=== PATIENT | male | born 1965 | race Caucasian/White ===

== ENCOUNTER 2017-09-14 23:56 | Observation (INO) | payer OTHER ==
[2017-09-15] MEDS ORDERED: MORPHINE 4 MG/ML SYR ONE ×2 (00:48→03:16)
[2017-09-15] MEDS ORDERED: KETOROLAC 30 MG/ML INJ ONE (00:48)
[2017-09-15] MEDS ORDERED: NA CHLORIDE 0.9% 1,000 ML ONE ×2 (00:48→07:19)
[2017-09-15 00:51] LABS: Absolute Lymphocytes (CBC) 3.1 K/uL (0.7-4.9); Absolute Monocytes 0.7 K/uL (0.1-1.3); Absolute Neutrophil 3.7 K/uL (1.8-8.0); Basophils % 0.6 % (0-1.3); Hematocrit 44.5 % (39.6-49.0); Lymphocytes % 39.9 % (15.3-44.8); MCH 28.1 pg (27.0-35.0); MCV 84.9 fL (80-100); MPV 10.7 fL (7.6-11.3); Monocytes % 8.6 % (3.3-12.3); RBC Red Blood Cell Count 5.24 M/uL (4.33-5.43)
[2017-09-15] MEDS ORDERED: ONDANSETRON 4 MG/2 ML VIAL ONE ×2 (00:51→07:19)
[2017-09-15 01:04] LABS: Potassium 3.7 mEq/L (3.6-5.0)
[2017-09-15 01:11] LABS: Urine Bacteria <20 /HPF (NONE SEEN); Urine Culture Reflex Order NOT NEEDED; Urine RBC <5 /HPF (NONE SEEN)
[2017-09-15 01:11] LABS: Albumin 4.3 g/dL (3.2-5.5); Bilirubin Direct 0.1 mg/dL (0-0.2); Bilirubin Total 0.8 mg/dL (0.3-1.2); Protein, Total 6.6 g/dL (6.0-8.3)
[2017-09-15 01:46] LABS: Urine Blood NEGATIVE (NEG); Urine Glucose NEGATIVE (NEG); Urine Protein NEGATIVE (NEG); Urine Specific Gravity <1.005 (1.005-1.030); Urine pH 5.5 (5.0-7.0)
[2017-09-15] MEDS ORDERED: CEFTRIAXONE 1000 MG/VIAL ONE (02:02)
--- NOTE | 2017-09-15 02:41 | EDPHYS ---
Physician Documentation [facility] Name: Wood Curry Age: 52 yrs Sex: Male : 1965 Arrival Date: 09/15/2017 Time: 00:00 Bed 14 Private MD: Kyle Gregg C ED Physician Mc Kim HPI: 09/15 01:34 This 52 yrs old Male presents to ER via Ambulatory with complaints of Flank alexis Pain, Whole rt side pain. 01:34 This 52 yrs old Male presents to ER via Ambulatory with complaints of Flank alexis Pain, Whole rt side pain. 01:34 The patient complains of pain in the right low back. The pain does not radiate. Onset: alexis The symptoms/episode began/occurred 3 day(s) ago. Modifying factors: The symptoms are alleviated by remaining still, the symptoms are aggravated by movement, palpation/percussion. Associated signs and symptoms: The patient has no apparent associated signs or symptoms. Severity of pain: At its worst the pain was moderate in the emergency department the pain is unchanged. The patient has not experienced similar symptoms in the past. Historical: - Allergies: 00:27 No Known Allergies; bb - Home Meds: 00:27 Multaq oral oral [Active]; Aspirin Oral [Active]; Gemfibrozil Oral [Active]; bb Simvastatin Oral [Active]; Nexium Oral [Active]; amlodipine oral [Active]; - PMHx: 00:27 CAD; Diabetes - NIDDM; GERD; Hypertension; Hyperlipidemia; bb - PSHx: 00:27 Heart stents; Cholecystectomy; plate in neck; Knee surgery; bb - Immunization history:: Adult Immunizations up to date. - Social history:: Smoking status: Patient uses tobacco products, smokes one-half pack cigarettes per day, Patient uses alcohol, on a daily basis. Patient/guardian denies using street drugs. - Ebola Screening: : No symptoms or risks identified at this time. - Family history:: not pertinent. ROS: 01:34 Constitutional: Negative for fever, chills, and weight loss, Eyes: Negative for injury, alexis pain, redness, and discharge, ENT: Negative for injury, pain, and discharge, Neck: Negative for injury, pain, and swelling, Cardiovascular: Negative for chest pain, palpitations, and edema, Respiratory: Negative for shortness of breath, cough, wheezing, and pleuritic chest pain, Back: Negative for injury and pain, : Negative for injury, bleeding, discharge, and swelling, MS/Extremity: Negative for injury and deformity, Skin: Negative for injury, rash, and discoloration, Neuro: Negative for headache, weakness, numbness, tingling, and seizure, Psych: Negative for depression, anxiety, suicide ideation, homicidal ideation, and hallucinations, Allergy/Immunology: Negative for hives, rash, and allergies, Endocrine: Negative for neck swelling, polydipsia, polyuria, polyphagia, and marked weight changes, Hematologic/Lymphatic: Negative for swollen nodes, abnormal bleeding, and unusual bruising. 01:34 Abdomen/GI: Positive for abdominal pain, of the left lower quadrant. Exam: 01:34 Constitutional: This is a well developed, well nourished patient who is awake, alert, alexis and in no acute distress. Head/Face: Normocephalic, atraumatic. Eyes: Pupils equal round and reactive to light, extra-ocular motions intact. Lids and lashes normal. Conjunctiva and sclera are non-icteric and not injected. Cornea within normal limits. Periorbital areas with no swelling, redness, or edema. ENT: Nares patent. No nasal discharge, no septal abnormalities noted. Tympanic membranes are normal and external auditory canals are clear. Oropharynx with no redness, swelling, or masses, exudates, or evidence of obstruction, uvula midline. Mucous membranes moist. Neck: Trachea midline, no thyromegaly or masses palpated, and no cervical lymphadenopathy. Supple, full range of motion without nuchal rigidity, or vertebral point tenderness. No Meningismus. Chest/axilla: Normal chest wall appearance and motion. Nontender with no deformity. No lesions are appreciated. Respiratory: Lungs have equal breath sounds bilaterally, clear to auscultation and percussion. No rales, rhonchi or wheezes noted. No increased work of breathing, no retractions or nasal flaring. Back: No spinal tenderness. No costovertebral tenderness. Full range of motion. Male : Normal genitalia with no discharge or lesions. Skin: Warm, dry with normal turgor. Normal color with no rashes, no lesions, and no evidence of cellulitis. MS/ Extremity: Pulses equal, no cyanosis. Neurovascular intact. Full, normal range of motion. Neuro: Awake and alert, GCS 15, oriented to person, place, time, and situation. Cranial nerves II-XII grossly intact. Motor strength 5/5 in all extremities. Sensory grossly intact. Cerebellar exam normal. Normal gait. Psych: Awake, alert, with orientation to person, place and time. Behavior, mood, and affect are within normal limits. 01:34 Chest/axilla: Inspection: normal, Palpation: is normal, Axilla: are normal, Lymph nodes: lymphadenopathy is not appreciated. 01:34 Cardiovascular: Rate: normal. 01:34 Abdomen/GI: Inspection: distension, Bowel sounds: normal, Palpation: moderate abdominal tenderness, in the anterior aspect of right lateral abdomen, posterior aspect of right lateral abdomen, left upper quadrant and left lower quadrant. Vital Signs: 00:27 BP 143 / 70; Pulse 8; Resp 18 S; Temp 98.4(O); Pulse Ox 97% on R/A; Weight 124.74 kg bb (R); Height 6 ft. 4 in. (193.04 cm) (R); Pain 8/10; 01:16 BP 106 / 69; Pulse 79; Resp 20; Pulse Ox 97% on R/A; aa1 02:00 BP 118 / 78; Pulse 74; Resp 18; Pulse Ox 96% on R/A; aa1 02:50 BP 114 / 67; Pulse 70; Resp 18; Pulse Ox 94% on R/A; aa1 03:32 BP 116 / 71; Pulse 79; Resp 16; Temp 98.8; Pulse Ox 96% on R/A; Pain 5/10; aa1 07:00 BP 119 / 81; Pulse 64; Resp 19; Pulse Ox 96% on R/A; Pain 9/10; rb1 00:27 Body Mass Index 33.47 (124.74 kg, 193.04 cm) bb MDM: 00:41 Patient medically screened. [facility] 01:36 Data reviewed: vital signs, nurses notes, lab test result(s), radiologic studies, CT alexis scan. 09/15 00:26 Order name: Amylase, Serum; Complete Time: 01:32 mg2 09/15 00:27 Order name: Basic Metabolic Panel; Complete Time: 01:32 mg2 09/15 00:27 Order name: CBC with Diff; Complete Time: 01:32 mg2 09/15 00:27 Order name: Creatinine for Radiology; Complete Time: 01:32 mg2 09/15 00:27 Order name: Hepatic Function; Complete Time: :32 mg2 09/15 00:27 Order name: Lipase; Complete Time: :32 mg2 09/15 00:27 Order name: Urine Microscopic Only; Complete Time: 01:32 mg2 09/15 01:13 Order name: Urine Dipstick--Ancillary (enter results) cc 09/15 01:13 Order name: Urine Dipstick-Ancillary; Complete Time: 02:35 EDMS 09/15 01:33 Order name: CT Abd/Pelvis - W/Contrast: iv only alexis 09/15 00:27 Order name: IV Saline Lock; Complete Time: 00:40 mg2 09/15 00:27 Order name: Labs collected and sent; Complete Time: 00:40 mg2 09/15 00:27 Order name: Urine Dipstick-Ancillary (obtain specimen); Complete Time: 00:35 mg2 09/15 02:45 Order name: CONS Physician Consult EDMS Administered Medications: 01:00 Drug: NS 0.9% 1000 ml Route: IV; Rate: 1 bolus; Site: right antecubital; aa1 02:47 Follow up: IV Status: Completed infusion aa1 01:00 Drug: Zofran 4 mg Route: IVP; Site: right antecubital; aa1 02:00 Follow up: Response: No adverse reaction aa1 01:02 Drug: TORadol 30 mg Route: IVP; Site: right antecubital; aa1 02:00 Follow up: Response: No adverse reaction; Pain is decreased aa1 01:04 Drug: morphine 4 mg Route: IVP; Site: right antecubital; aa1 02:00 Follow up: Response: No adverse reaction; Pain is decreased aa1 02:06 Drug: Rocephin - (cefTRIAXone) 1 grams Route: IVPB; Infused Over: 30 mins; Site: right aa1 antecubital; 02:36 Follow up: IV Status: Completed infusion aa1 03:00 Drug: Flagyl 500 mg Volume: 100 ml; Route: IVPB; Rate: 200 ml/hr; Infused Over: 30 aa1 mins; Site: right antecubital; 03:40 Follow up: IV Status: Infusion continued upon admission aa1 Disposition: 09/15/17 02:40 Hospitalization ordered by Kyle Gregg for Inpatient Admission. Preliminary diagnosis are Abdominal tenderness, Left sided colitis - epiploic appendagitis. - Bed requested for Telemetry/MedSurg (Inpatient). - Status is Inpatient Admission. rb1 - Condition is Stable. - Problem is new. - Symptoms have improved. UTI on Admission? No Signatures: Dispatcher [employer] EDVT Keke Johnston RN RN kl Janeth Graham RN RN aa1 Mc Kim MD MD cha Ballard, Brenda, RN RN bb Heather Gupta, RN RN rb1 Maximo Laughlin RN RN mg2 Corrections: (The following items were deleted from the chart) 01:58 00:43 Stone Protocol+CT.RAD.BRZ ordered. [facility] 02:51 02:40 Hospitalization Ordered by A Marysol FUENTES for Inpatient Admission. Preliminary kl diagnosis is Abdominal tenderness; Left sided colitis - epiploic appendagitis. Bed requested for Telemetry/MedSurg (Inpatient). Status is Inpatient Admission. Condition is Stable. Problem is new. Symptoms have improved. UTI on Admission? No. alexis 06:12 02:51 09/15/2017 02:40 Hospitalization Ordered by A Marysol FUENTES for Inpatient Admission. kl Preliminary diagnosis is Abdominal tenderness; Left sided colitis - epiploic appendagitis. Bed requested for [facility] ER HOLD. Status is Inpatient Admission. Condition is Stable. Problem is new. Symptoms have improved. UTI on Admission? No. renate 07:57 06:12 09/15/2017 02:40 Hospitalization Ordered by A Marysol FUENTES for Inpatient Admission. rb1 Preliminary diagnosis is Abdominal tenderness; Left sided colitis - epiploic appendagitis. Bed requested for Telemetry/MedSurg (Inpatient). Status is Inpatient Admission. Condition is Stable. Problem is new. Symptoms have improved. UTI on Admission? No. renate
--- NOTE | 2017-09-15 02:41 | ER ---
Nurse's Notes [facility] Name: Wood Curry Age: 52 yrs Sex: Male : 1965 Arrival Date: 09/15/2017 Time: 00:00 Bed 14 Private MD: Kyle Gregg C Diagnosis: Abdominal tenderness;Left sided colitis-epiploic appendagitis Presentation: 09/15 00:22 Presenting complaint: Patient states: he is having left lower quad pain x 2 days but bb pain is worsening denies N/V/D, denies dysuria, last BM was 2 days ago. Transition of care: patient was not received from another setting of care. Onset of symptoms was September 12, 2017. Risk Assessment: Do you want to hurt yourself or someone else? Patient reports no desire to harm self or others. Initial Sepsis Screen: Does the patient meet any 2 criteria? No. Patient's initial sepsis screen is negative. Does the patient have a suspected source of infection? No. Patient's initial sepsis screen is negative. Care prior to arrival: None. 00:22 Method Of Arrival: Ambulatory bb 00:22 Acuity: MARK 3 bb Historical: - Allergies: 00:27 No Known Allergies; bb - Home Meds: 00:27 Multaq oral oral [Active]; Aspirin Oral [Active]; Gemfibrozil Oral [Active]; bb Simvastatin Oral [Active]; Nexium Oral [Active]; amlodipine oral [Active]; - PMHx: 00:27 CAD; Diabetes - NIDDM; GERD; Hypertension; Hyperlipidemia; bb - PSHx: 00:27 Heart stents; Cholecystectomy; plate in neck; Knee surgery; bb - Immunization history:: Adult Immunizations up to date. - Social history:: Smoking status: Patient uses tobacco products, smokes one-half pack cigarettes per day, Patient uses alcohol, on a daily basis. Patient/guardian denies using street drugs. - Ebola Screening: : No symptoms or risks identified at this time. - Family history:: not pertinent. Screenin:30 Abuse screen: Denies threats or abuse. Denies injuries from another. Nutritional aa1 screening: No deficits noted. Tuberculosis screening: No symptoms or risk factors identified. Fall Risk None identified. Assessment: 00:30 General: Appears in no apparent distress. comfortable, Behavior is calm, cooperative, aa1 appropriate for age, Smells of alcohol. Pain: Complains of pain in left lower quadrant Quality of pain is described as sharp, Is continuous. Neuro: Level of Consciousness is awake, alert, obeys commands, Oriented to person, place, time, situation, Moves all extremities. Full function Gait is steady, Speech is normal. Cardiovascular: Denies chest pain, palpitations, shortness of breath, Heart tones S1 S2 present Rhythm is regular. Respiratory: Airway is patent Respiratory effort is even, unlabored, Respiratory pattern is regular, symmetrical. GI: Abdomen is non-distended, Bowel sounds present X 4 quads. Abd is soft X 4 quads Abdomen is tender to palpation in left lower quadrant. : No signs and/or symptoms were reported regarding the genitourinary system. EENT: No signs and/or symptoms were reported regarding the EENT system. Derm: Skin is intact, is healthy with good turgor, Skin is pink, warm \T\ dry. Musculoskeletal: Circulation, motion, and sensation intact. Capillary refill < 3 seconds. 01:09 Reassessment: Patient appears in no apparent distress at this time. Patient and/or aa1 family updated on plan of care and expected duration. Pain level reassessed. Patient is alert, oriented x 3, equal unlabored respirations, skin warm/dry/pink. Pt remains to await initial assessment by ERP. 02:07 Reassessment: Patient appears in no apparent distress at this time. Patient and/or aa1 family updated on plan of care and expected duration. Pain level reassessed. Patient is alert, oriented x 3, equal unlabored respirations, skin warm/dry/pink. Pt back from CT. 03:10 Reassessment: Patient appears in no apparent distress at this time. Patient and/or aa1 family updated on plan of care and expected duration. Pain level reassessed. Patient is alert, oriented x 3, equal unlabored respirations, skin warm/dry/pink. Pt to be admitted. Awaiting bed assignment. 07:00 General: Appears uncomfortable, Behavior is calm, cooperative. Pain: Complains of pain rb1 in left lower quadrant Pain currently is 9 out of 10 on a pain scale. Neuro: Level of Consciousness is awake, alert, obeys commands, Oriented to person, place, time, situation. Cardiovascular: Capillary refill < 3 seconds is brisk in bilateral fingers. Respiratory: Airway is patent Respiratory effort is even, unlabored, Respiratory pattern is regular, symmetrical. Derm: Skin is pink, warm \T\ dry. 07:35 Reassessment: Report called to JAKY Yee. Information from the SBAR was given. All rb1 questions asked and answered. Vital Signs: 00:27 BP 143 / 70; Pulse 8; Resp 18 S; Temp 98.4(O); Pulse Ox 97% on R/A; Weight 124.74 kg bb (R); Height 6 ft. 4 in. (193.04 cm) (R); Pain 8/10; 01:16 BP 106 / 69; Pulse 79; Resp 20; Pulse Ox 97% on R/A; aa1 02:00 BP 118 / 78; Pulse 74; Resp 18; Pulse Ox 96% on R/A; aa1 02:50 BP 114 / 67; Pulse 70; Resp 18; Pulse Ox 94% on R/A; aa1 03:32 BP 116 / 71; Pulse 79; Resp 16; Temp 98.8; Pulse Ox 96% on R/A; Pain 5/10; aa1 07:00 BP 119 / 81; Pulse 64; Resp 19; Pulse Ox 96% on R/A; Pain 9/10; rb1 00:27 Body Mass Index 33.47 (124.74 kg, 193.04 cm) bb ED Course: 00:00 Patient arrived in ED. es 00:01 Kyle Gregg MD is Private Physician. es 00:21 Maximo Laughlin RN is Primary Nurse. mg2 00:23 Triage completed. bb 00:27 Arm band placed on Patient placed in an exam room, on a stretcher, on pulse oximetry. bb Family accompanied patient. 00:30 Patient has correct armband on for positive identification. Bed in low position. Call aa1 light in reach. 00:31 Urine collected: clean catch specimen, clear. aa1 00:40 Initial lab(s) drawn, by ED staff, sent to lab. Inserted saline lock: 20 gauge in right aa1 antecubital area, using aseptic technique. Blood collected. 00:41 Mc Kim MD is Attending Physician. alexis 01:[address] via wheelchair. kw1 01:56 CT completed. Patient tolerated procedure well. Patient moved back from CT. kw1 01:57 CT Abd/Pelvis - W/Contrast: iv only In Process Unspecified. EDMS 02:37 Kyle Gregg MD is Hospitalizing Provider. alexis 03:10 No provider procedures requiring assistance completed. Patient admitted, IV remains in aa1 place. No redness/swelling at site. 07:55 No provider procedures requiring assistance completed. Patient admitted, IV remains in rb1 place. Administered Medications: 01:00 Drug: NS 0.9% 1000 ml Route: IV; Rate: 1 bolus; Site: right antecubital; aa1 02:47 Follow up: IV Status: Completed infusion aa1 01:00 Drug: Zofran 4 mg Route: IVP; Site: right antecubital; aa1 02:00 Follow up: Response: No adverse reaction aa1 01:02 Drug: TORadol 30 mg Route: IVP; Site: right antecubital; aa1 02:00 Follow up: Response: No adverse reaction; Pain is decreased aa1 01:04 Drug: morphine 4 mg Route: IVP; Site: right antecubital; aa1 02:00 Follow up: Response: No adverse reaction; Pain is decreased aa1 02:06 Drug: Rocephin - (cefTRIAXone) 1 grams Route: IVPB; Infused Over: 30 mins; Site: right aa1 antecubital; 02:36 Follow up: IV Status: Completed infusion aa1 03:00 Drug: Flagyl 500 mg Volume: 100 ml; Route: IVPB; Rate: 200 ml/hr; Infused Over: 30 aa1 mins; Site: right antecubital; 03:40 Follow up: IV Status: Infusion continued upon admission aa1 Outcome: 02:40 Decision to Hospitalize by Provider. alexis 03:39 Admitted to ER Hold. Please see [facility] for further documentation. aa1 03:39 Condition: good 03:39 Instructed on the need for admit, Demonstrated understanding of instructions. 07:55 Admitted to Tele accompanied by tech, via wheelchair, room 420, with chart, Report rb1 called to JAKY Yee 07:57 Patient left the ED. rb1 Signatures: Dispatcher [employer] EDMS Janeth Graham RN RN aa1 Mc Kim MD MD cha Salyer, Edna es Ballard, Brenda, RN RN Heather Ferrera RN RN rb1 Keke Parker1 Gardose, Maximo, RN RN mg2
[2017-09-15] MEDS ORDERED: MORPHINE 4 MG/ML SYR IV PRN (02:48)
[2017-09-15] MEDS ORDERED: ACETAMINOPHEN 500 MG TAB PO PRN (02:48)
[2017-09-15] MEDS ORDERED: ONDANSETRON 4 MG/2 ML VIAL IV PRN ×2 (02:48→08:15)
[2017-09-15] MEDS ORDERED: SODIUM CHLORIDE 0.9% 10ML INJ IV PRN (02:52)
[2017-09-15] MEDS ORDERED: METRONIDAZOLE 500mg IVPB 500 MG/100 ML BAG IV ONE (03:16)
[2017-09-15 04:36] VITALS: BMI 33.5
[2017-09-15] MEDS: NA CHLORIDE 0.9% 1,000 ML IV SCH ×3 (06:00→22:00)
[2017-09-15] MEDS ORDERED: Morphine 2 MG/2 ML SYR ONE (07:25)
[2017-09-15 08:08] VITALS: O2SAT 96
[2017-09-15] MEDS ORDERED: AMLODIPINE 5 MG TAB PO SCH (09:00)
[2017-09-15] MEDS ORDERED: CEFTRIAXONE 1 GM/NS 50 ML 1 GM/50 ML BAG IV SCH (09:00)
[2017-09-15] MEDS: DRONEDARONE 400 MG TAB PO SCH ×2 (09:00→20:38)
[2017-09-15] MEDS: ASPIRIN EC 81 MG TAB PO SCH (09:00)
[2017-09-15] MEDS: AMLODIPINE 5 MG TAB PO SCH (09:00)
[2017-09-15] MEDS: FENTANYL CITR 100 MCG/2 ML IV PRN ×4 (09:04→20:37)
[2017-09-15] MEDS: PANTOPRAZOLE 40 MG INJ IVP SCH (09:06)
[2017-09-15] MEDS: METRONIDAZOLE 500mg IVPB 500 MG/100 ML BAG IV SCH ×3 (09:07→18:12)
--- NOTE | 2017-09-15 09:55 | RAD REPORT ---
EXAM DESCRIPTION: CT - Abdomen Pelvis W Contrast - 09/15/2017 3:26 am CLINICAL HISTORY: Left lower quadrant pain, nausea, vomiting and diarrhea. A preliminary written report was provided at the time of the study, and the report was reviewed prio r to final dictation. COMPARISON: CT study August 2014 TECHNIQUE: Biphasic, helical CT imaging of the abdomen and pelvis was performed following 100 ml non -ionic IV contrast. Oral contrast was given. All CT scans are performed using dose optimization technique as appropriate and may include automated exposure control or mA/KV adjustment according to patient size. FINDINGS: No suspicious findings in the lung bases. Fatty infiltration of the liver is present. No new or suspicious liver finding. Spleen and pancreas a lso without suspicious finding. Cholecystectomy clips are present with no biliary tree dilatation. Symmetric renal function is seen with no hydronephrosis or suspicious renal mass. No pyelonephritis o r acute renal process. Left renal cysts are present and benign in appearance. Urinary bladder, prosta te gland and seminal vesicles show no suspicious findings. No gastric dilatation or gastric wall thickening. No acute small bowel finding. No evidence of append icitis. From the cecum through the mid descending colon no acute findings seen. At the descending sig moid junction there is stranding in the adjacent fat. No gross wall thickening seen. Patient does not have any significant diverticulosis. Sigmoid colon is quite redundant with sigmoid colon extending t o the anterior superior abdomen at the midline. No active sigmoid or rectum process. No free air, free fluid, pneumatosis or other inflammatory stranding. No mass or bulky lymphadenop athy. No significant hernia findings. No adrenal abnormality. No suspicious bony findings. IMPRESSION: Mild epiploic appendagitis or mild colitis changes at the descending sigmoid junction. Nonacute findings are detailed in the body of the report and without significant change from 2014.
[2017-09-15] MEDS: CODEINE 30MG/APAP 300MG TAB PO SCH ×2 (15:20→20:37)
--- NOTE | 2017-09-15 15:49 | HP ---
Date of Admission: 09/15/2017 Chief Complaint: Abdominal pain. History Of Present Illness: This is a 52-year-old very pleasant male patient, who started to have left-sided abdominal pain, mostly in the left anterior flank and left lower quadrant region. This pain started on , which is day before yesterday. It was intermittent to start with and now it is continues pain, intensity has gone up significantly. On the pain scale 0 to 10 , the patient says that his pain was 10/10. No aggravating or relieving factor. No associated fever or chills. No constipation or diarrhea. No bleeding. Had some nausea, but no vomiting. No radiation of pain. After the patient was evaluated in the ER, he was admitted to the hospital. He was not getting any relief from morphine 4 mg IV, so as of this morning, we change it to fentanyl 25 mcg IV and by the time I saw him, he informed me that it actually was helping lot better than morphine. The patient denies any prior episode of similar type of problem. Allergies: NO KNOWN ALLERGIES. Medications: Amlodipine 5 mg daily, aspirin 81 mg daily, Crestor 40 mg daily, Lopid 600 mg 2 times a day, Multaq 400 mg p.o. b.i.d., Nexium 40 mg daily. Review of Systems: GI: As mentioned above. All other systems reviewed and negative. Past Medical History: Significant for hypertension, mixed hyperlipidemia, gastroesophageal reflux disease, fatty liver disease, coronary artery disease, paroxysmal atrial fibrillation. Past Surgical History: Arthroscopic knee surgery, surgery for anal fissure, hemorrhoidectomy, cholecystectomy, C-spine surgery, coronary artery angioplasty with stent placement, and cardioversion for atrial fibrillation. Family History: Significant for cardiovascular disease. Social History: Negative for smoking and alcohol use. Physical Examination: Vital Signs: Height 6 feet 4 inches. Weight 275 pounds. Temperature 97.9, pulse 66, respiratory rate 18, blood pressure 131/87, oxygen saturation 94%. General: Awake, alert, oriented, not in distress. HEENT: Head atraumatic, normocephalic. Conjunctivae nonerythematous. Sclerae white. Mouth, no thrush or edema noted. Ears/Nose, no mass, lesion, discharge noted. Neck: Supple. No JVD, lymph nodes, bruit, thyromegaly noted. Lungs: Bilateral good equal air entry. Clear to auscultation. No rhonchi. No rales. Heart: Normal heart sounds, no murmur or gallop. Abdomen: Soft. Bowel sounds normal. No guarding, rigidity, or distention. Presence of left-sided tenderness which is very severe. No rebound tenderness. Bowel sounds normoactive. Extremities: No leg edema. No calf tenderness. Skin: No rash, ulcer, cellulitis. Lymphatics: No lymph node enlargement in neck, supraclavicular, infraclavicular region. Neuro: No focal neurological deficit. Chest: Unremarkable. External Genitalia: Deferred. Rectal: Deferred. Laboratory Data: White count 7.7, hemoglobin 14.7, platelets 169. Sodium 140, potassium 3.7, chloride 106, bicarb 25, BUN 19, creatinine 0.95, glucose 97. Liver function tests unremarkable. Amylase 45, lipase 43. Urinalysis negative. CAT scan of abdomen and pelvis done in the emergency room shows evidence of epiploic appendagitis or mild colitis changes in the descending, sigmoid colon. No evidence of fatty liver disease. Impression: 1. Colitis. 2. Epiploic appendagitis. 3. Diverticulosis. 4. Hypertension. 5. Mixed hyperlipidemia. 6. Fatty liver disease. 7. Coronary artery disease. 8. Paroxysmal atrial fibrillation. 9. Gastroesophageal reflux disease. Plan: Admit the patient to hospital for further evaluation and management of this problem. The patient is appropriate for inpatient and is expected to spend 2 midnights in hospital. We will go ahead and continue home medications per order. Start patient on IV antibiotic as of this evening. We will start him on clear liquid diet. We will also start him on Tylenol with codeine 1 tablet 3 times a day on a scheduled basis. Continue fentanyl per order. I will see him tomorrow for followup. We did talk about DVT prophylaxis using SCD , Lovenox, or ambulation and the patient is going to ambulate adequately and while not ambulating and resting, he was advised to move his feet and legs to reduce chances of DVT. The patient's last colonoscopy was done by Dr. Middleton and the patient says it was done this year by Dr. Middleton and because of the polyp that was detected Dr. Middleton has recommended for him to repeat another colonoscopy in 1 year. DARVIN/MODL Voice ID: [id number] MTDD
--- NOTE | 2017-09-15 16:34 | HP ---
Date of Admission: 09/15/2017 DICTATION ENDS HERE. DARVIN/MODKen Voice ID: [id number] MTDD
[2017-09-15] MEDS: CEFTRIAXONE/SWI 1gm 1 GM/10 ML SYR IVP SCH (20:36)
[2017-09-16] MEDS: METRONIDAZOLE 500mg IVPB 500 MG/100 ML BAG IV SCH ×2 (00:36→05:20)
[2017-09-16] MEDS: FENTANYL CITR 100 MCG/2 ML IV PRN ×2 (00:36→04:44)
[2017-09-16] MEDS: NA CHLORIDE 0.9% 1,000 ML IV SCH (00:36)
[2017-09-16 05:56] LABS: Absolute Lymphocytes (CBC) 1.3 K/uL (0.7-4.9); Absolute Monocytes 0.4 K/uL (0.1-1.3); Basophils % 0.6 % (0-1.3); Eosinophils % 2.2 % (0-4.4); Hematocrit 40.9 % (39.6-49.0); Lymphocytes % 26.3 % (15.3-44.8); MCH 28.3 pg (27.0-35.0); MCV 85.6 fL (80-100); MPV 10.9 fL (7.6-11.3); Monocytes % 8.7 % (3.3-12.3); RBC Red Blood Cell Count 4.77 M/uL (4.33-5.43)
[2017-09-16 06:29] LABS: ALT/SGPT 19 IU/L (10-60); AST/SGOT 19 IU/L (10-42); Albumin 3.5 g/dL (3.2-5.5); Alkaline Phosphatase 47 IU/L (42-121); BUN Blood Urea Nitrogen 20 mg/dL (6-20); Bicarbonate 27 mEq/L (21-31); Bilirubin Direct 0.3 mg/dL (0-0.2); Bilirubin Total 1.7 mg/dL (0.3-1.2); Glucose Level 87 mg/dL (65-120); Lipase 24 U/L (22-51); Potassium 4.2 mEq/L (3.6-5.0); Protein, Total 6.1 g/dL (6.0-8.3); Sodium Level 136 mEq/L (135-145)
[2017-09-16] MEDS: CODEINE 30MG/APAP 300MG TAB PO SCH (08:38)
[2017-09-16] MEDS: ASPIRIN EC 81 MG TAB PO SCH (08:39)
[2017-09-16] MEDS: PANTOPRAZOLE 40 MG INJ IVP SCH (08:40)
[2017-09-16] MEDS: DRONEDARONE 400 MG TAB PO SCH (08:40)
[2017-09-16] MEDS: AMLODIPINE 5 MG TAB PO SCH (08:40)
[2017-09-16] MEDS: CEFTRIAXONE/SWI 1gm 1 GM/10 ML SYR IVP SCH (08:46)
[2017-09-16 12:05] VITALS: BP 150/87; TEMP 97
--- NOTE | 2017-09-16 12:11 | DS ---
Date of Discharge: 09/16/2017 Disposition: Discharged to go home physical. Physical Examination: HEENT: Unremarkable. Lungs: Clear to auscultation. Heart: Sounds normal. Abdomen: Soft, bowel sounds normal. No guarding, rigidity. No distention. Bowel sounds normoactiv e. The patient has some tenderness in left lower quadrant, which is much better today compared to . There is no rebound tenderness. Extremities: No leg edema. Laboratory Data: Yesterday; white count 7.7, hemoglobin 14.7, platelets 169. This morning; white co unt 4.8, hemoglobin 13.5, platelets 134. Yesterday; sodium 140, potassium 3.7, chloride 106, bicarb 25, BUN 19, creatinine 0.95, glucose 97. Liver function tests unremarkable. Lipase 43. Today; sodi um 136, potassium 4.2, chloride 104, bicarb 27, BUN 20, creatinine 0.82, glucose 87. Total bilirubin 1.7, rest of the liver function tests unremarkable, lipase 24. Upon review of prior hospital labs, most of the time the patient's total bilirubin is between 1.5 to 2 range. Hospital Course: A 52-year-old male patient, who came into emergency room with complaints of left-si ded abdominal pain. Please see dictated H and P for more information. After the patient was evaluat ed in emergency room, he was admitted to the hospital with problem of colitis and epiploic appendagit is. Surgical consultation was obtained from Dr. Ramirez. Initially, he was kept n.p.o. and then as of yesterday evening, we started him on clear liquid diet. He is ambulating well without any proble m. He was given IV pain medication, fentanyl which has helped to control his pain. Yesterday dallas ricketts, we started him on Tylenol with Codeine 1 tablet 3 times a day around the clock and he has received so far 2 doses of this pain medication. His pain is much better as he describes. No new complaints or problems reported between yesterday and today, and considering his symptoms are getting better. No need for any surgical intervention. The patient gets regular colonoscopy with his gastroenterolog ist, Dr. Middleton and he had his colonoscopy done this year as he says and because of the polyps, he wi ll have another colonoscopy in 1 year from his last colonoscopy, so it will be sometime beginning of this next year. He denies any bleeding problem. I did talk to him and explain to him and his ben jimenez that I feel comfortable sending him home considering he is tolerating clear liquid diet well and pain is improving, vital signs are stable, and the patient actually is planning to leave town tomorr ow to go to [place] with his work and he will be back a week after on Sunday and he will come see me o n that particular day. He understands that if his symptoms get worse, he needs to come see me right away or seek immediate medical attention where he is, and he understands that very much. I also disc ussed with both of them that I would like for him to stay on clear liquid diet today and starting jose , he can have mostly clear liquid diet, but he can have rice and mashed potato type of food cindi , and if he does okay then as of day after , he can advance his diet to regular diet. Discharge Diagnoses: 1.Colitis. 2.Epiploic appendagitis. 3.Diverticulosis. 4.Hypertension. 5.Mixed hyperlipidemia. 6.Fatty liver disease. 7.Coronary artery disease. 8.Paroxysmal atrial fibrillation. 9.Gastroesophageal reflux disease. Discharge Medications And Instructions: 1.Continue prior home medications. 2.Take antibiotics, cefuroxime 500 mg p.o. b.i.d. for 10 days with food and metronidazole 500 mg p.o . 3 times a day for 10 days with food. 3.Take pain medication Tylenol with Codeine No. 3 one tablet by mouth 3 times a day as needed for pa in and the patient should not drive car or operate any hazardous machines after using this pain medic ation. 4.The patient may use Tylenol 500 mg by mouth 4 times a day as needed for pain. 5.Follow up at my office in 2 weeks. DARVIN/MODL Voice ID: [id number] Report ID: [id number]
--- NOTE | 2017-09-17 13:59 | CON ---
Date of Consultation: 09/15/2017 Chief Complaint: Colitis, left lower quadrant. Indications: This is the case of a 52-year-old patient, who comes to us with abdominal pain on the l eft side, found to have inflammation of the pericolonic fat over that region. The differential diagn osis was colitis versus epiploic appendagitis, so surgical consult was obtained for evaluation. The patient denies any dysuria, hematuria, hematochezia, or melena. Denies any recent traveling out of [facility] country. Denies any family member sick at home. The patient denies eating anything out of the us ual. He states the last colonoscopy was done less than a years ago by Dr. Middleton and as per the lin ent, it was negative for any malignancy. Allergies: NONE. Family History: Noncontributory. Past Surgical History: Hemorrhoidectomy, cholecystectomy, coronary artery stent placement, atrial fi brillation. Social History: He does not smoke. He does not drink alcohol. Past Medical History: Morbid obesity, hypertension, atrial fibrillation, GE reflux, coronary artery disease, liver disease. Review of Systems: Constitutional: Denies any fevers or chills. Respiratory: Denies any shortness of breath. Gastrointestinal: As above. He denies any dysuria or hematuria. Physical Examination: General: The patient is awake and alert. HEENT: Pupils are equal and reactive. Anicteric. Neck: Supple. Chest: Clear. Abdomen: Left lower quadrant mild tenderness. No guarding, rebound, or peritoneal signs. Rectal: Deferred. Extremities: Good capillary refill. Laboratory Data: Blood work shows WBC count of 7.7, hemoglobin of 14.7, platelets of 169. Potassium 3.7, creatinine 0.95. Urine; nitrates or blood negative. CAT scan of the abdomen and pelvis interp reted by Dr. Nugent as mild epiploic appendagitis, mild colitis in the ascending colon. Assessment: This is a 52-year-old patient with findings in the sigmoid colon consistent with inflamm ation, etiology of that is unknown. At least we understand by the patient that the last colonoscopy several months ago did not show any evidence of malignancies. The etiology of that inflammation coul d be infectious or immune process on this case. We are going to treat him as a colitis. We have exp lained to him the differential diagnosis including also the possible diagnosis of epiploic appendagit is versus colitis. The patient is on antibiotics right now. He understand the importance of followi ng up with his GI doctor when he gets discharged from this center to verify the colonoscopy findings. We will follow the patient with you. We can give him some diet. MARGOT Voice ID: [id number] Report ID: [id number]
== END 2017-09-16 11:49 | disposition home or self-care (01) ==
LOC: ER 23:56 → ERHOLD 09-15 02:42 → INTOOBSV 09-15 02:42 → 4TH 09-15 07:49
PROVIDERS: ADMIT Internal Medicine; ATTEND Internal Medicine
DX: K52.9 Noninfective gastroenteritis and colitis, unspecified (principal); K63.89 Other specified diseases of intestine; K57.90 Diverticulosis of intestine, part unspecified, without perforation or abscess without bleeding; I10 Essential (primary) hypertension; E78.2 Mixed hyperlipidemia; K76.0 Fatty (change of) liver, not elsewhere classified; I25.10 Atherosclerotic heart disease of native coronary artery without angina pectoris; I48.0 Paroxysmal atrial fibrillation; K21.9 Gastro-esophageal reflux disease without esophagitis; E66.01 Morbid (severe) obesity due to excess calories; Z68.33 Body mass index [BMI] 33.0-33.9, adult
CPT/HCPCS: 36415; 74177; 80048; 80076; 81003; 81015; 82150; 83690; 85025; 96361; 96365; 96367; 96375; 99285; C9113; G0378; J0696; J2270; J2405; J3010; J7030; Q9967

== ENCOUNTER 2018-01-14 06:00 | Day surgery (SDC) | payer OTHER ==
[2018-01-11 10:40] LABS: Absolute Monocytes 0.5 K/uL (0.1-1.3); Absolute Neutrophil 2.9 K/uL (1.8-8.0); Basophils % 0.3 % (0-1.3); Eosinophils % 3.5 % (0-4.4); Hematocrit 44.6 % (39.6-49.0); MCH 29.5 pg (27.0-35.0); MCV 88.2 fL (80-100); MPV 10.9 fL (7.6-11.3); Monocytes % 9.5 % (3.3-12.3); RBC Red Blood Cell Count 5.05 M/uL (4.33-5.43)
[2018-01-11 10:42] LABS: Protime INR 0.95
[2018-01-11 10:55] LABS: Potassium 4.9 mmol/L (3.5-5.1)
[2018-01-14] MEDS ORDERED: NA CHLORIDE 0.9% 500 ML ONE (06:20)
[2018-01-14] MEDS ORDERED: LIDOCAINE 1% MPF 2 ML AMPULE ONE (06:20)
[2018-01-14] MEDS ORDERED: HEPA 1000U/500MLS 1,000 UNIT/500 ML BAG IV ONE (06:46)
[2018-01-14] MEDS ORDERED: LIDOCAINE 1% MPF 30 ML VIAL ONE (06:48)
[2018-01-14] MEDS ORDERED: FENTANYL CITR 100 MCG/2 ML ONE (06:56)
[2018-01-14] MEDS ORDERED: MIDAZOLAM HCL 2 MG/2 ML INJ ONE ×2 (06:56→07:11)
[2018-01-14] MEDS ORDERED: NA CHLORIDE 0.9% 0 ML ONE (07:03)
[2018-01-14] MEDS ORDERED: ATROPINE SULF 1 MG/10 ML SYR IV ONE (07:03)
[2018-01-14 08:42] VITALS: O2SAT 96
[2018-01-14 08:44] VITALS: BP 125/79; TEMP 98.1
--- NOTE | 2018-01-14 18:04 | OP ---
Surgeon: David Vernon MD Track Machine Operator Repairer: Bonita Napier. Procedure: Left heart catheterization, selective coronary artery angiogram. Indication: Unstable angina and positive stress test in the apical region. Mr. Curry is 52, has had a history of CAD in the past, has had a history of a ramus stent. He is a smoker, has a history of hypertension, dyslipidemia, family history of heart disease, as well as atri al fibrillation status post cardioversion, has done well on Multaq. He was given 6 mg of Versed and 50 of fentanyl for sedation. He was prepped and draped in the routine sterile fashion. A 6-Ukrainian s randal was introduced in the right common femoral artery. Angio-Seal was used to close the case. Ang iogram there was normal. Erin catheter 6-Ukrainian left and right were used to do the diagnostic ang iography. He was found to have diffuse plaquing in the distal RCA and the LAD. His LAD was small re lative to his size. His ramus stent was patent. The circumflex was normal. There were no complicat ions. Blood loss was 5 cc. Total conscious sedation was 30 minutes. Postoperative Diagnosis: Moderate coronary artery disease. Plan: Medical therapy. I will probably add Imdur 30 mg daily to his regimen. JENNIFER/MARY Voice ID: [id number] Report ID: [id number]
== END 2018-01-14 09:41 | disposition home or self-care (01) ==
LOC: CCL 06:00
PROC: B201YZZ Plain Radiography of Multiple Coronary Arteries using Other Contrast (ICD-10-PCS; principal; 2018-01-14)
DX: I25.110 Atherosclerotic heart disease of native coronary artery with unstable angina pectoris (principal); I10 Essential (primary) hypertension; I48.91 Unspecified atrial fibrillation; R00.2 Palpitations; E78.5 Hyperlipidemia, unspecified; E78.6 Lipoprotein deficiency; K21.9 Gastro-esophageal reflux disease without esophagitis; F17.210 Nicotine dependence, cigarettes, uncomplicated; Z95.5 Presence of coronary angioplasty implant and graft; Z82.49 Family history of ischemic heart disease and other diseases of the circulatory system
CPT/HCPCS: 36415; 80048; 85025; 85610; 85730; 93454; C1760; C1893; J0583; J2001; J2250; J3010

== ENCOUNTER 2019-10-21 05:52 | Observation (INO) | payer OTHER ==
[2019-10-21] MEDS ORDERED: PANTOPRAZOLE 40 MG INJ ONE (06:27)
[2019-10-21 06:28] LABS: Absolute Lymphocytes (CBC) 1.8 K/uL (0.7-4.9); Basophils % 0.5 % (0-1.3); Hematocrit 45.9 % (39.6-49.0); MPV 9.9 fL (7.6-11.3); RBC Red Blood Cell Count 5.31 M/uL (4.33-5.43)
[2019-10-21 06:30] LABS: Protime INR 0.91
[2019-10-21] MEDS ORDERED: PROMETHAZINE INJ 25 MG/ML AMP ONE (06:36)
--- NOTE | 2019-10-21 06:39 | ER ---
Nurse's Notes [facility] Name: Wood Curry Age: 54 yrs Sex: Male : 1965 Arrival Date: 10/21/2019 Time: 05:54 Bed 14 Private MD: Diagnosis: Unstable angina Presentation: 10/20 06:07 Chief complaint: Patient states: I WOKE UP AT 0445 THEN I FELT THE BURNING SENSATION ON rv MY CHEST. I TOOK A SHOWER AND IT IS NOT GOING AWAY. PAIN RADIATES TO THE LEFT ARM. WITH HISTORY OF HEART STENT. DENIES COUGH, FEVER, SOB. COMPLAINS OF NAUSEA WITHOUT VOMITING. Coronavirus screen: Proceed with normal triage. Ebola Screen: No symptoms or risks identified at this time. Initial Sepsis Screen: Does the patient meet any 2 criteria? No. Patient's initial sepsis screen is negative. Does the patient have a suspected source of infection? No. Patient's initial sepsis screen is negative. Risk Assessment: Do you want to hurt yourself or someone else? Patient reports no desire to harm self or others. Onset of symptoms was October 21, 2019 at 04:45. 06:07 Method Of Arrival: Ambulatory 06:07 Acuity: MARK 3 rv Triage Assessment: 06:10 General: Appears comfortable, Behavior is calm, cooperative. Pain: Complains of pain in rv chest Pain radiates to left arm Pain currently is 5 out of 10 on a pain scale. Quality of pain is described as burning, Pain began 2 hours ago. EENT: No signs and/or symptoms were reported regarding the EENT system. Neuro: Level of Consciousness is awake, alert, obeys commands, Oriented to person, place, time, situation. Cardiovascular: Patient's skin is warm and dry. Rhythm is sinus rhythm with unifocal PVCs. Respiratory: Airway is patent Respiratory effort is even, unlabored, Respiratory pattern is regular, symmetrical, Breath sounds are clear bilaterally. GI: Abdomen is round non-distended, Reports nausea. Derm: Skin is intact. Historical: - Allergies: 06:10 No Known Allergies; rv - PMHx: 06:10 CAD; GERD; Hyperlipidemia; Hypertension; rv - PSHx: 06:10 Heart stents; Cholecystectomy; rv - Immunization history:: Adult Immunizations up to date. - Social history:: Smoking status: Patient reports the use of cigarette tobacco products, smokes one-half pack cigarettes per day. Screenin:11 Abuse screen: Denies threats or abuse. Denies injuries from another. Nutritional rv screening: No deficits noted. Tuberculosis screening: No symptoms or risk factors identified. Fall Risk None identified. 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 patient agreed. awaiting orders from cardio doctor. Vital Signs: 06:07 BP 185 / 94; Pulse 86; Resp 18; Temp 97.6; Pulse Ox 97% ; Weight 129.27 kg; Height 6 rv ft. 4 in. (193.04 cm); Pain 5/10; 06:49 BP 144 / 89; Pulse 78; Resp 17; Pulse Ox 96% on R/A; rv 07:49 BP 122 / 78; Pulse 69; Resp 17; Pulse Ox 97% ; rb1 06:07 Body Mass Index 34.69 (129.27 kg, 193.04 cm) rv ED Course: 05:54 Patient arrived in ED. bp1 06:09 Triage completed. rv 06:10 Nanette Guerrero FNP-C is [facility]. snw 06:10 Frederick Mcdermott MD is Attending Physician. snw 06:10 Arm band placed on Patient placed in the treatment room, on a stretcher, Patient rv notified of wait time. 06:12 Patient has correct armband on for positive identification. playground monitor on. Pulse rv ox on. NIBP on. 06:22 No provider procedures requiring assistance completed. Initial lab(s) drawn, by or, rv sent to lab. EKG done, by ED staff, reviewed by Nanette CERVANTES. Inserted saline lock: 18 gauge in right antecubital area, using aseptic technique. Blood collected. 06:38 Kyle Gregg MD is Hospitalizing Provider. snw 07:13 Heather Gupta, JAKY is Primary Nurse. rb1 08:09 Patient admitted, IV remains in place. rb1 Administered Medications: 06:00 Drug: Phenergan 12.5 mg Route: IVP; Site: right antecubital; rv 07:13 Follow up: Response: No adverse reaction rv 06:22 Drug: ProTONIX 40 mg Route: IVP; Site: right antecubital; rv 06:49 Follow up: Response: No adverse reaction rv 06:41 Drug: Metoprolol 5 mg Route: IVP; Site: right antecubital; rv 06:49 Follow up: Response: No adverse reaction; Blood pressure is lowered rv 07:14 Not Given (BP 97/75): Metoprolol 5 mg IVP once; Hold for SBP <100 or HR <60. 15 min rb1 post 1st dose 07:44 Drug: morphine 4 mg Route: IVP; Site: right antecubital; rb1 08:09 Follow up: Response: No adverse reaction; Pain is decreased rb1 Outcome: 06:39 Decision to Hospitalize by Provider. snw 08:09 Patient left the ED. rb1 08:09 Admitted to [facility] accompanied by nurse, via wheelchair, with chart. rb1 08:09 Condition: stable 08:09 Instructed on the need for admit. Signatures: Nanette Gooden, STEAMER TENDER-C STEAMER TENDER-Csnw Heather Gupta RN RN rb1 Martin Negro RN RN rv Tricia Lyn [facility]
--- NOTE | 2019-10-21 06:39 | EDPHYS ---
Physician Documentation [facility] Name: Wood Curry Age: 54 yrs Sex: Male : 1965 Arrival Date: 10/21/2019 Time: 05:54 Bed 14 Private MD: ED Physician Frederick Mcdermott HPI: 10/20 06:44 This 54 yrs old Male presents to ER via Ambulatory with complaints of snw Nausea/Vomiting, Chest Pain. 06:44 The patient presents to the emergency department with nausea. Onset: The snw symptoms/episode began/occurred suddenly, last week, and became worse this morning, and became persistent. Possible causes: chest pain. Associated signs and symptoms: Pertinent positives: nausea. Severity of symptoms: At their worst the symptoms were moderate severe in the emergency department the symptoms are unchanged. It is unknown whether or not the patient has had similar symptoms in the past. The patient has been recently seen by a physician: Dr. Vernon 1 week(s) ago, with similar presenting complaints, Dr. 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 Historical: - Allergies: 06:10 No Known Allergies; rv - PMHx: 06:10 CAD; GERD; Hyperlipidemia; Hypertension; rv - PSHx: 06:10 Heart stents; Cholecystectomy; rv - Immunization history:: Adult Immunizations up to date. - Social history:: Smoking status: Patient reports the use of cigarette tobacco products, smokes one-half pack cigarettes per day. ROS: 06:42 Constitutional: Negative for fever, chills, and weight loss, Eyes: Negative for injury, snw pain, redness, and discharge, ENT: Negative for injury, pain, and discharge, Respiratory: Negative for shortness of breath, cough, wheezing, and pleuritic chest pain, Back: Negative for injury and pain, : Negative for injury, bleeding, discharge, and swelling, MS/Extremity: Negative for injury and deformity, Skin: Negative for injury, rash, and discoloration, Neuro: Negative for headache, weakness, numbness, tingling, and seizure. 06:42 Neck: Positive for left lateral neck pain radiation. 06:42 Cardiovascular: Positive for chest pain. 06:42 Abdomen/GI: Positive for nausea. Exam: 06:39 Constitutional: This is a well developed, well nourished patient who is awake, alert, snw and in no acute distress. Head/Face: Normocephalic, atraumatic. Eyes: Pupils equal round and reactive to light, extra-ocular motions intact. Lids and lashes normal. Conjunctiva and sclera are non-icteric and not injected. Cornea within normal limits. Periorbital areas with no swelling, redness, or edema. ENT: Nares patent. No nasal discharge, no septal abnormalities noted. Tympanic membranes are normal and external auditory canals are clear. Oropharynx with no redness, swelling, or masses, exudates, or evidence of obstruction, uvula midline. Mucous membranes moist. Neck: Trachea midline, no thyromegaly or masses palpated, and no cervical lymphadenopathy. Supple, full range of motion without nuchal rigidity, or vertebral point tenderness. No Meningismus. Chest/axilla: Normal chest wall appearance and motion. Nontender with no deformity. No lesions are appreciated. Respiratory: Lungs have equal breath sounds bilaterally, clear to auscultation and percussion. No rales, rhonchi or wheezes noted. No increased work of breathing, no retractions or nasal flaring. Back: No spinal tenderness. No costovertebral tenderness. Full range of motion. Skin: Warm, dry with normal turgor. Normal color with no rashes, no lesions, and no evidence of cellulitis. MS/ Extremity: Pulses equal, no cyanosis. Neurovascular intact. Full, normal range of motion. Neuro: Awake and alert, GCS 15, oriented to person, place, time, and situation. Cranial nerves II-XII grossly intact. Motor strength 5/5 in all extremities. Sensory grossly intact. Cerebellar exam normal. Normal gait. 06:39 Abdomen/GI: Soft, non-tender, with normal bowel sounds. No distension or tympany. No guarding or rebound. No evidence of tenderness throughout. 06:39 Cardiovascular: Rate: normal, Rhythm: regular, Pulses: no pulse deficits are appreciated, Heart sounds: normal. Vital Signs: 06:07 BP 185 / 94; Pulse 86; Resp 18; Temp 97.6; Pulse Ox 97% ; Weight 129.27 kg; Height 6 rv ft. 4 in. (193.04 cm); Pain 5/10; 06:49 BP 144 / 89; Pulse 78; Resp 17; Pulse Ox 96% on R/A; rv 07:49 BP 122 / 78; Pulse 69; Resp 17; Pulse Ox 97% ; rb1 06:07 Body Mass Index 34.69 (129.27 kg, 193.04 cm) rv MDM: 06:10 Patient medically screened. snw 06:33 Data reviewed: vital signs, nurses notes. Counseling: I had a detailed discussion with snw the patient and/or guardian regarding: the historical points, exam findings, and any diagnostic results supporting the discharge/admit diagnosis, the presence of at least one elevated blood pressure reading (>120/80) during this emergency department visit, lab results, radiology results, the need for further work-up and treatment in the hospital. Physician consultation: Dayne Gregg MD was called at 06:33. 06:43 Physician consultation: David Vernon MD in the emergency department to see patient at snw 06:40. 10/20 06:11 Order name: Basic Metabolic Panel snw 10/20 06:11 Order name: CBC with Diff; Complete Time: 06:33 snw 10/20 06:11 Order name: LFT's; Complete Time: 07:19 snw 10/20 06:11 Order name: Magnesium; Complete Time: 07:19 snw 10/20 06:11 Order name: NT PRO-BNP; Complete Time: 07:19 snw 10/20 06:11 Order name: PT-INR; Complete Time: 06:46 snw 10/20 06:11 Order name: Troponin (emerg Dept Use Only); Complete Time: 07:19 snw 10/20 06:11 Order name: XRAY Chest (1 view) snw 10/20 06:12 Order name: Basic Metabolic Panel; Complete Time: 07:19 EDMS 10/20 07:41 Order name: RAD; Complete Time: 13:10 EDMS 10/20 06:11 Order name: EKG; Complete Time: 06:13 snw 10/20 06:11 Order name: Cardiac monitoring; Complete Time: 06:21 snw 10/20 06:11 Order name: EKG - Nurse/Tech; Complete Time: 06:21 snw 10/20 06:11 Order name: IV Saline Lock; Complete Time: 06:21 snw 10/20 06:11 Order name: Labs collected and sent; Complete Time: 06:21 snw 10/20 06:11 Order name: O2 Per Protocol; Complete Time: 06:21 snw 10/20 06:11 Order name: O2 Sat Monitoring; Complete Time: 06: snw 10/20 06:31 Order name: NPO; Complete Time: 06:31 rv Administered Medications: 06:00 Drug: Phenergan 12.5 mg Route: IVP; Site: right antecubital; rv 07:13 Follow up: Response: No adverse reaction rv 06:22 Drug: ProTONIX 40 mg Route: IVP; Site: right antecubital; rv 06:49 Follow up: Response: No adverse reaction rv 06:41 Drug: Metoprolol 5 mg Route: IVP; Site: right antecubital; rv 06:49 Follow up: Response: No adverse reaction; Blood pressure is lowered rv 07:14 Not Given (BP 97/75): Metoprolol 5 mg IVP once; Hold for SBP <100 or HR <60. 15 min rb1 post 1st dose 07:44 Drug: morphine 4 mg Route: IVP; Site: right antecubital; rb1 08:09 Follow up: Response: No adverse reaction; Pain is decreased rb1 Disposition: 10/21/19 06:39 Hospitalization ordered by Kyle Gregg for Inpatient Admission. Preliminary diagnosis is Unstable angina. - Bed requested for Telemetry/MedSurg (Inpatient). - Status is Inpatient Admission. rb1 - Condition is Stable. - Problem is an acute exacerbation. - Symptoms are unchanged. Addendum: 10/31/2019 19:04 Co-signature as Attending Physician, Frederick dewitt Signatures: Dispatcher [employer] Keke Conner RN RN kl Lam, Pin, MD MD pkl Waters, Shelly, OPTICAL MODEL MAKER AND TESTER-C OPTICAL MODEL MAKER AND TESTER-[place] Heather Gupta RN RN rb1 Martin Negro RN RN rv Corrections: (The following items were deleted from the chart) 10/20 07:39 06:39 Hospitalization Ordered by A Marysol FUENTES for Inpatient Admission. Preliminary kl diagnosis is Unstable angina. Bed requested for Telemetry/MedSurg (Inpatient). Status is Inpatient Admission. Condition is Stable. Problem is an acute exacerbation. Symptoms are unchanged. snw 07:41 07:39 10/21/2019 06:39 Hospitalization Ordered by Kyle Gregg MD for Inpatient Admission. kl Preliminary diagnosis is Unstable angina. Bed requested for Telemetry/MedSurg (Inpatient). Status is Inpatient Admission. Condition is Stable. Problem is an acute exacerbation. Symptoms are unchanged. renate 08:09 07:41 10/21/2019 06:39 Hospitalization Ordered by Kyle Gregg MD for Inpatient Admission. rb1 Preliminary diagnosis is Unstable angina. Bed requested for Telemetry/MedSurg (Inpatient). Status is Inpatient Admission. Condition is Stable. Problem is an acute exacerbation. Symptoms are unchanged. renate
[2019-10-21] MEDS ORDERED: METOPROLOL TARTRATE 5 MG/5 ML INJ IV ONE (06:46)
[2019-10-21] MEDS ORDERED: NA CHLORIDE 0.9% 1,000 ML ONE (06:47)
[2019-10-21 06:51] LABS: ALT/SGPT 38 U/L (12-78); AST/SGOT 45 U/L (15-37); Alkaline Phosphatase 50 U/L (45-117); BUN Blood Urea Nitrogen 10 mg/dL (7-18); Bicarbonate 26 mmol/L (21-32); Bilirubin Direct 0.4 mg/dL (0-0.2); Bilirubin Total 1.1 mg/dL (0.2-1.0); Glucose Level 94 mg/dL (74-106); Magnesium 2.5 mg/dL (1.8-2.4); NT PRO-BNP 27 pg/mL (<125); Potassium 4.1 mmol/L (3.5-5.1); Protein, Total 7.2 g/dL (6.4-8.2); Sodium Level 143 mmol/L (136-145); Troponin (Emerg Dept Use Only) < 0.02 ng/mL (0.0-0.045)
[2019-10-21] MEDS ORDERED: MORPHINE 4 MG/ML SYR ONE (07:30)
--- NOTE | 2019-10-21 07:40 | RAD REPORT ---
EXAM DESCRIPTION: RAD - Chest Single View - 10/21/2019 7:23 am CLINICAL HISTORY: CHEST PAIN COMPARISON: March 2019 TECHNIQUE: AP portable chest image was obtained 10/21/2019 7:23 am . FINDINGS: Lungs are clear. Heart and vasculature are normal. No measurable pleural effusion and no p neumothorax. No acute bony abnormality seen. No acute aortic findings suspected. IMPRESSION: No acute cardiopulmonary process. No significant interval change.
[2019-10-21] MEDS ORDERED: ACETAMINOPHEN 500 MG TAB PO PRN (07:56)
[2019-10-21] MEDS: ASPIRIN EC 81 MG TAB PO SCH (09:00)
[2019-10-21] MEDS ORDERED: NITROGLYCERIN 0.4 MG/TAB SL PRN (09:01)
[2019-10-21] MEDS ORDERED: FENTANYL CITR 100 MCG/2 ML ONE (09:33)
[2019-10-21] MEDS ORDERED: MIDAZOLAM HCL 2 MG/2 ML INJ ONE ×2 (09:33→10:26)
[2019-10-21] MEDS ORDERED: HEPA 1000U/500MLS 1,000 UNIT/500 ML BAG IV ONE (09:33)
[2019-10-21] MEDS ORDERED: NA CHLORIDE 0.9% 0 ML ONE (09:34)
[2019-10-21] MEDS ORDERED: ATROPINE SULF 1 MG/10 ML SYR IV ONE (09:34)
--- NOTE | 2019-10-21 10:31 | CON ---
Date of Consultation: 10/21/2019 Reason For Admission: Unstable angina. History Of Present Illness: Mr. Curry is a 54-year-old white male. He is known to me from previous office visits. He has a past medical history of atrial fibrillation. He is taking Multaq and aspir in. He is in sinus rhythm with occasional PVCs. Has had a history of CAD, status post stent of the circumflex in 2010. Catheterization in 2013 showed patent stent. He also has a history of hypertens ion, dyslipidemia, gastroesophageal reflux disease, and he is status post cholecystectomy. He came i n with substernal chest burning pressure radiating to both arms with some nausea and diaphoresis. No shortness of breath. Has had some palpitation. Denied PND, orthopnea, pedal edema, or syncope. De nied any fever or chills or cough. Past Medical History: As stated above. Allergies: NONE. Review of Systems: Negative. Social History: Positive for tobacco that he quit a while back. Family History: Unremarkable. Medications: At home include Multaq, aspirin, Crestor, Norvasc, and Lopid. Physical Examination: General: When I initially saw him in the emergency room, his pressure was 186/111. This was treated with IV beta-blockers and his last blood pressure was 111/75. His pulse was 74, O2 saturation was 9 6% on room air. He is afebrile. HEENT: Negative. Neck: Supple with no bruit. Chest: Clear to auscultation and percussion. Cardiac: Revealed a regular rhythm and rate. No murmurs, gallops, or rubs. Abdomen: Benign. Extremities: Revealed no clubbing, cyanosis, or edema. Diagnostic Data: His troponin was negative. His potassium was 4.1, creatinine is 0.95. His BNP was negative. EKG showed normal sinus rhythm with PVCs. Chest x-ray is negative. Impression And Plan: 1.Patient with history of coronary artery disease, status post stents in the circumflex with very dsouza ggestive symptoms of acute coronary syndrome and unstable angina. He has substernal pressure radiati ng to both shoulders with nausea, diaphoresis, and shortness of breath. He has ruled out for myocard ial infarction, but I would prefer we do a heart catheterization on him to define his coronary anatom y. 2.Hypertension, well controlled now on Norvasc. 3.Atrial fibrillation in sinus rhythm on Multaq and aspirin. 4.Dyslipidemia, well controlled on Crestor and fenofibrate. 5.Gastroesophageal reflux disease. 6.History of tobacco use, but he is in remission. We will see what the catheterization shows before making final decisions. The case was discussed with Dr. Gregg. We may have to treat his blood press ure more aggressively down the road. JENNIFER/MARY Voice ID: [id number] Report ID: [id number]
[2019-10-21] MEDS ORDERED: NA CHLORIDE 0.9% 100 ML IV ONE (10:33)
--- NOTE | 2019-10-21 10:54 | EKG ---
Test Date: 2019-10-21 Test Time: 06:03:36 Wire Photo Operator: RV MEASUREMENT RESULTS: Intervals: Rate: 84 WV: 164 QRSD: 110 QT: 404 QTc: 477 Warren: P: 41 WV: 164 QRS: -29 T: 78 INTERPRETIVE STATEMENTS: Sinus rhythm with frequent premature ventricular complexes Incomplete left bundle branch block Borderline ECG Compared to ECG 04/20/2015 08:01:58 Ventricular premature complex(es) now present Left bundle-branch block now present Myocardial infarct finding no longer present Electronically Signed On 10-21-19 10:53:49 CDT by David Vernon
--- NOTE | 2019-10-21 11:46 | OP ---
Surgeon: David Vernon MD Certified Coding Specialist: Morgan Kirkpatrick. The patient was admitted to Dr. Gregg's service on 10/21/2019, for unstable angina and history of alexis nary artery disease. Procedures: He was brought to the shop laborer for left heart catheterization, selective coronary arteri ogram. Indication: CAD, unstable angina, status post previous stent in 2010. Description Of Procedure: Mr. Curry had Versed and fentanyl for IV sedation. The right femoral art enid area was injected with 10 mL of Xylocaine. Following that and using the Seldinger technique, a 6 -Telugu sheath was introduced in the common femoral artery. Angiography there was normal. AngioSeal was used to close the case. A JL4 catheter was introduced through the right femoral sheath into the left main. Injection there showed normal left main, minor plaquing in the LAD and the circumflex. The circumflex was nondominant. There was a stent noted in the ramus, which is a small vessel with a bout 30% to 40% diffuse in-stent restenosis. A JR4 catheter was then inserted in the right main. He was very right dominant, normal RCA. No complications. Blood Loss: 5 mL. Anesthesia: Total conscious sedation was 30 minutes. Final Diagnosis: Moderate coronary artery disease. Plan: Plan is for medical therapy. Patient can stay in the hospital for 2 more hours. He can go ho me after that. I will see him in the office in about a week. I will discuss the case further with Dr. Gregg. I am going to take him off the isosorbide, double his Nexium, and probably change the Norvasc to Lotrel. JENNIFER/MARY Voice ID: [id number] Report ID: [id number]
[2019-10-21 12:31] VITALS: BMI 34.7
[2019-10-21] MEDS: METOPROLOL TAR 25 MG TAB PO SCH (17:17)
[2019-10-21] MEDS ORDERED: TRAMADOL HCL 50 MG TAB PO ONE (20:24)
[2019-10-22] MEDS: METOPROLOL TAR 25 MG TAB PO SCH (04:39)
[2019-10-22 06:00] LABS: Absolute Lymphocytes (CBC) 1.7 K/uL (0.7-4.9); Basophils % 0.6 % (0-1.3); Hematocrit 44.7 % (39.6-49.0); Lymphocytes % 25.7 % (15.3-44.8); MPV 10.5 fL (7.6-11.3); RBC Red Blood Cell Count 5.15 M/uL (4.33-5.43)
[2019-10-22 06:10] LABS: Potassium 3.9 mmol/L (3.5-5.1)
[2019-10-22] MEDS: ASPIRIN EC 81 MG TAB PO SCH (08:19)
[2019-10-22 09:23] VITALS: O2SAT 98
[2019-10-22 09:39] VITALS: BP 167/86; TEMP 97.7
--- NOTE | 2019-10-22 23:46 | DS ---
Date of Discharge: 10/22/2019 History Of Present Illness: Patient was seen this morning. Denies any complaints. Still continues to have left-sided burning type of chest pain as he describes. Today, he also reports having some upper epigastric discomfort. Physical Examination: Vital Signs: Reviewed. HEENT: Unremarkable. Lungs: Clear to auscultation. Abdomen: Soft. Bowel sounds normal. No guarding, rigidity, tenderness, or distension. Extremities: No leg edema. Hospital Course: This is a 54-year-old male patient admitted to the hospital with complaints of chest pain. Please see dictated H and P for more information. After patient came into emergency room, he was admitted to the hospital and Dr. Vernon took him to cardiac director of cath lab yesterday and he found minimal coronary artery disease with patent stent that was placed few years ago. So, no need for any further cardiac intervention as he reported. This morning when I saw him, he had no complaints. His right groin area appears unremarkable. No evidence of any hematoma or any swelling. Overall, he feels better except this burning pain and we did talk about it that this is not cardiac pain. We need to think about other non-cardiac etiology like gastroesophageal reflux disease and he takes Nexium twice a day. I have suggested him to stop Nexium and in place of that start taking Dexilant in the morning and famotidine at nighttime. We will also have to make some changes in blood pressure medication as blood pressure was elevated. Patient was discharged to go home in stable condition. Weight loss was advised and he is to follow up with me and Dr. Vernon in about 2 to 3 weeks. Discharge Medications And Instructions: 1. Continue all prior home medications except stop amlodipine and stop Nexium. 2. Start amlodipine/benazepril 5/10 mg 1 capsule p.o. daily. 3. Stop Nexium and start Dexilant 60 mg p.o. daily in morning 30 minutes before breakfast with water. 4. Famotidine 40 mg p.o. at bedtime. Final Diagnoses: 1. Chest pain, atypical. 2. Gastroesophageal reflux disease. 3. Fatty liver disease. 4. Thrombocytopenia. 5. Hypertension. 6. Mixed hyperlipidemia. 7. Coronary artery disease. DARVIN/MODL Voice ID: [id number] Report ID: [id number] MTDSilvina
--- NOTE | 2019-10-23 00:01 | HP ---
Date of Admission: 10/21/2019 Chief Complaint: Chest pain. History Of Present Illness: This is a 54-year-old very pleasant male patient, came into emergency ro om with complaints of chest pain for last 1 week. He has history of coronary artery disease and had a cardiac stent placed in the past. He sees Dr. Vernon regularly and last week, he went to his offi with this complaint of chest pain. Had an EKG, which was unremarkable. Today, he came into emerg ency room because of worsening of his chest pain complaint. He describes as burning type of pain in his left side of the chest and pain radiates to his left side of the neck and today, he had some asso ciated nausea and felt a little short of breath. He came into emergency room after he was evaluated. I was contacted, Dr. Vernon was contacted and patient was admitted to the hospital. Patient will be kept n.p.o. as Dr. Vernon is planning to take him to cardiac cath today. He denies any cough, co ngestion. No fever, chills. No expectoration. Allergies: NO KNOWN ALLERGIES. Medications: List reviewed. Review of Systems: Cardiovascular: As mentioned above. All other systems reviewed and negative. Past Medical History: Significant for hypertension, mixed hyperlipidemia, gastroesophageal reflux di sease, fatty liver disease, coronary artery disease, paroxysmal atrial fibrillation. Past Surgical History: Arthroscopic knee surgery, surgery for anal fissure, hemorrhoidectomy, cholec ystectomy, C-spine surgery, coronary artery angioplasty with stent placement, and cardioversion for a trial fibrillation. Family History: Significant for cardiovascular disease. Social History: Negative for smoking and alcohol use. Physical Examination: Vital Signs: Temperature 97.6, pulse 86, respiratory rate 18, blood pressure 185/94, oxygen saturati on 97%. Height 6 feet 4 inches, weight 285 pounds. General: Awake, alert, oriented, not in distress. HEENT: Head atraumatic, normocephalic. Conjunctivae nonerythematous. Sclerae white. Mouth, no thr ush or edema noted. Ears/Nose, no mass, lesion, discharge noted. Neck: Supple. No JVD, lymph nodes, bruit, thyromegaly noted. Lungs: Bilateral good equal air entry. Clear to auscultation. No rhonchi. No rales. Heart: Normal heart sounds, no murmur or gallop. Abdomen: Soft, bowel sounds normal. No guarding, rigidity, tenderness, mass, hepatosplenomegaly, di stension, or bruit noted. Extremities: No leg edema. No calf tenderness. Skin: No rash, ulcer, cellulitis. Lymphatics: No lymph node enlargement in neck, supraclavicular, infraclavicular region. Neuro: No focal neurological deficit. Chest: Unremarkable. External Genitalia: Deferred. Rectal: Deferred. Laboratory Data: White count 5.7, hemoglobin 15.4, platelets 151. Sodium 143, potassium 4.1, chlori de 110, bicarb 26, BUN 10, creatinine 0.95, glucose 94, total bilirubin 1.1. SGOT 45, SGPT 38. Trop onin less than 0.02. Imaging Data: EKG: No acute ST-T changes. Sinus rhythm with frequent premature ventricular complex , incomplete left bundle-branch block. Impression: 1.Angina. 2.Coronary artery disease. 3.Hypertension. 4.Mixed hyperlipidemia. 5.Gastroesophageal reflux disease. 6.Fatty liver disease. 7.Paroxysmal atrial fibrillation. Plan: We will admit patient to hospital for further evaluation and management of this problem. Home medications will be continued. Dr. Vernon will take him to cardiac cath and further intervention w ill be decided upon at the time of cardiac cath to see whether he needs any stent placement or not. Details and plan of treatment discussed with patient and he understands and agrees to proceed with th e procedure and details were discussed with eight arm operator, Dr. Vernon. DARVIN/MODL Voice ID: [id number]
== END 2019-10-22 10:20 | disposition home or self-care (01) ==
LOC: ER 05:52 → ERHOLD 07:03 → INTOOBSV 07:03 → 2ND 09:08
PROVIDERS: ADMIT Internal Medicine; ATTEND Internal Medicine
DX: R07.89 Other chest pain (principal); I25.10 Atherosclerotic heart disease of native coronary artery without angina pectoris; T82.855A Stenosis of coronary artery stent, initial encounter; I10 Essential (primary) hypertension; I48.0 Paroxysmal atrial fibrillation; E78.2 Mixed hyperlipidemia; K21.9 Gastro-esophageal reflux disease without esophagitis; K76.0 Fatty (change of) liver, not elsewhere classified; D69.6 Thrombocytopenia, unspecified; Z11.59 Encounter for screening for other viral diseases; F17.201 Nicotine dependence, unspecified, in remission; Z90.49 Acquired absence of other specified parts of digestive tract; Z95.5 Presence of coronary angioplasty implant and graft; Z82.49 Family history of ischemic heart disease and other diseases of the circulatory system
CPT/HCPCS: 93005; 85025 ×2; 80048 ×2; 36415 ×2; 83735; 85610; 80076; 84484 ×3; 83880; 71045; 93454; 96375; 96374; 99285; U0002; C1893; C1760; J2550; C9113; J2250 ×2; J3010; J7030; J1644; G0378 ×3; J0583

== ENCOUNTER 2021-10-22 17:08 | Inpatient (IN) | payer OTHER ==
--- NOTE | 2021-10-22 17:21 | EDPHYS ---
Physician Documentation [facility] Name: Wood Curry Age: 56 yrs Sex: Male : 1965 Arrival Date: 10/22/2021 Time: 17:09 Bed 2 Private MD: Kyle Gregg C ED Physician Chapo Montiel HPI: 10/22 17:46 This 56 yrs old Male presents to ER via Ambulatory with complaints of Abnormal concrete journeyman Results. 17:46 Pt reports called by Dr Gregg today and told in renal failure, creatinine last month rn normal and now 5. Had recent BP meds changed and states BP ran low for almost a week. Given IV fluids by Dr. Vernon. States actually starting to feel better and has gotten his appetite back recently. . Onset: The symptoms/episode began/occurred last week. Severity of symptoms: At their worst the symptoms were moderate in the emergency department the symptoms have improved. The patient has not experienced similar symptoms in the past. The patient has been recently seen by a physician:. Historical: - Allergies: 17:19 NKDA; bh1 - Home Meds: 17:19 gemfibrozil Oral [Active]; Multaq Oral [Active]; rosuvastatin 10 mg oral tab 1 tab once bh1 daily [Active]; ezetimibe 10 mg oral tab 1 tab once daily [Active]; - PMHx: 17:19 CAD; GERD; Hyperlipidemia; Hypertension; bh1 - Immunization history:: Adult Immunizations up to date. - Social history:: Smoking status: Patient denies any tobacco usage or history of. - Family history:: not pertinent. - Hospitalizations: : No recent hospitalization is reported. ROS: 17:46 Constitutional: Negative for fever, chills, and weight loss, Eyes: Negative for injury, rn pain, redness, and discharge, Neck: Negative for injury, pain, and swelling, Cardiovascular: Negative for chest pain, palpitations, and edema, Respiratory: Negative for shortness of breath, cough, wheezing, and pleuritic chest pain, Abdomen/GI: Negative for abdominal pain, nausea, vomiting, diarrhea, and constipation, Back: Negative for injury and pain, MS/Extremity: Negative for injury and deformity, Skin: Negative for injury, rash, and discoloration, Neuro: Negative for headache, weakness, numbness, tingling, and seizure. Exam: 17:46 Constitutional: This is a well developed, well nourished patient who is awake, alert, rn and in no acute distress. Head/Face: Normocephalic, atraumatic. Eyes: Periorbital areas with no swelling, redness, or edema. Cardiovascular: Regular rate and rhythm. No pulse deficits. Respiratory: No increased work of breathing, no retractions or nasal flaring. Abdomen/GI: Soft, non-tender Skin: Warm, dry MS/ Extremity: Pulses equal, no cyanosis. Neurovascular intact. Full, normal range of motion. Equal circumference. Neuro: Awake and alert, GCS 15 Vital Signs: 17:16 BP 133 / 83; Pulse 83; Resp 18; Temp 98.3(T); Pulse Ox 99% on R/A; Weight 122.47 kg bh1 (R); Height 6 ft. 4 in. (193.04 cm); Pain 0/10; 19:34 BP 165 / 107; Pulse 65; Resp 18 S; Pulse Ox 100% on R/A; as6 20:48 BP 149 / 87; Pulse 71; Resp 16 S; Pulse Ox 98% on R/A; as6 17:16 Body Mass Index 32.87 (122.47 kg, 193.04 cm) bh1 MDM: 17:15 Patient medically screened. rn 10/22 17:22 Order name: CBC with Diff; Complete Time: 18:28 rn 10/22 17:22 Order name: CMP; Complete Time: 19:18 rn 10/22 17:22 Order name: Blood Culture Adult (2) rn 10/22 17:22 Order name: Urine Microscopic Only rn 10/22 17:22 Order name: SARS-COV-2 RT PCR (Document "Date of Onset" if Symptomatic) rn 10/22 17:22 Order name: BNP; Complete Time: 19:18 rn 10/22 17:22 Order name: Troponin High Sensitivity; Complete Time: 19:18 rn 10/22 17:22 Order name: LFT's; Complete Time: 19:18 rn 10/22 17:38 Order name: Uric Acid; Complete Time: 18:28 rn 10/22 17:38 Order name: Phosphorus; Complete Time: 18:28 rn 10/22 17:38 Order name: Urine For Protein, Random rn 10/22 17:38 Order name: Urine Osmolality rn 10/22 17:38 Order name: Osmolality, Serum rn 10/22 17:39 Order name: Urine Potassium Random rn 10/22 17:22 Order name: IV Start; Complete Time: 18:10 rn 10/22 17:22 Order name: Urine Dipstick-Ancillary (obtain specimen); Complete Time: 19:34 rn 10/22 17:22 Order name: EKG; Complete Time: 17:23 rn 10/22 17:22 Order name: EKG - Nurse/Tech; Complete Time: 19:22 rn 10/22 17:22 Order name: Cardiac monitoring; Complete Time: 18:09 rn 10/22 17:22 Order name: O2 Sat Monitoring; Complete Time: 18:09 rn 10/22 17:22 Order name: XRAY Chest (1 view) 10/22 17:39 Order name: Urine Sodium Random 10/22 18:41 Order name: RAD; Complete Time: 19:18 EDAR 10/22 19:20 Order name: CK [facility] 10/22 19:20 Order name: US Rp Exam Complete [facility] 10/22 19:28 Order name: Urine Dipstick-Ancillary EDAR 10/22 19:47 Order name: Creatine Phosphokinase EDAR Administered Medications: 19:40 Drug: NS 0.9% 1000 ml Route: IV; Rate: 100 ml/hr; Site: right antecubital; aa9 21:27 Follow up: IV Status: Infusion continued upon admission as6 20:05 Drug: NS 0.9% 1000 ml Route: IV; Rate: 150 ml/hr; Site: right antecubital; aa9 21:28 Follow up: IV Status: Infusion continued upon admission as6 20:09 Drug: [place] (HYDROcodone-acetaminophen) 10 mg-325 mg 1 tabs Route: PO; aa9 21:26 Follow up: Response: No adverse reaction; Pain is decreased as6 Disposition Summary: 10/22/21 17:21 Hospitalization Ordered Hospitalization Status: Inpatient Admission rn Provider: Kyle Gregg rn [facility]n Condition: Stable rn Problem: new rn Symptoms: are unchanged rn Bed/Room Type: Standard rn Room Assignment: 221(10/22/21 20:34) cg Diagnosis - Acute kidney failure, unspecified rn Forms: - Medication Reconciliation Form rn - SBAR form rn Signatures: Dispatcher [employer] Mc Whitney MD MD cha Nieto, Roman, MD MD rn Garcia, Cindy, RN RN Raoul Galvez RN RN as6 Nickie Lucas, RN RN aa9 Kaleigh Ribera RN RN 1 Corrections: (The following items were deleted from the chart) 17:21 17:19 Home Meds: amlodipine oral; [place] [id number] 20:34 17:21 rn naima
--- NOTE | 2021-10-22 17:21 | ER ---
Nurse's Notes [facility] Name: Wood Curry Age: 56 yrs Sex: Male : 1965 Arrival Date: 10/22/2021 Time: 17:09 Bed 2 Private MD: Kyle Crawford C Diagnosis: Acute kidney failure, unspecified Presentation: 10/22 17:16 Chief complaint: Patient states: PATIENT REPORTS HAVING BP ISSUES WITH MULTIPLE MED bh1 CHANGES BY ORTHOPAEDIC SURGEON AND PCP. HE IS SCHEDULED FOR SURGERY ON BACK AND HAD BLOOD WORK ON 10/21 AND KIDNEY FUNCTION LABS ARE SHOWING TO BE IN ACUTE RENAL FAILURE. WAS SENT HERE BY DR. CRAWFORD TO BE ADMITTED. Coronavirus screen: Vaccine status: Patient reports receiving the 2nd dose of the covid vaccine. Client denies travel out of the [place] in the last 14 days. At this time, the client does not indicate any symptoms associated with coronavirus-19. Ebola Screen: Patient negative for fever greater than or equal to 101.5 degrees Fahrenheit, and additional compatible Ebola Virus Disease symptoms. Initial Sepsis Screen: Does the patient meet any 2 criteria? No. Patient's initial sepsis screen is negative. Does the patient have a suspected source of infection? No. Patient's initial sepsis screen is negative. Risk Assessment: Do you want to hurt yourself or someone else? Patient reports no desire to harm self or others. Onset of symptoms is unknown. 17:16 Method Of Arrival: Ambulatory [facility] 17:16 Acuity: MARK 3 1 Triage Assessment: 17:21 General: Appears in no apparent distress. Behavior is calm, cooperative, appropriate bh1 for age. Pain: Denies pain. Historical: - Allergies: 17:19 NKDA; bh1 - Home Meds: 17:19 gemfibrozil Oral [Active]; Multaq Oral [Active]; rosuvastatin 10 mg oral tab 1 tab once bh1 daily [Active]; ezetimibe 10 mg oral tab 1 tab once daily [Active]; - PMHx: 17:19 CAD; GERD; Hyperlipidemia; Hypertension; bh1 - Immunization history:: Adult Immunizations up to date. - Social history:: Smoking status: Patient denies any tobacco usage or history of. - Family history:: not pertinent. - Hospitalizations: : No recent hospitalization is reported. Screenin:26 Abuse screen: Denies threats or abuse. Denies injuries from another. Nutritional bp screening: No deficits noted. Tuberculosis screening: No symptoms or risk factors identified. Fall Risk None identified. Assessment: 17:26 General: SEE TRIAGE NOTE. bp 19:34 Reassessment: Patient appears in no apparent distress at this time. Patient is alert, as6 oriented x 3, equal unlabored respirations, skin warm/dry/pink. Vital Signs: 17:16 BP 133 / 83; Pulse 83; Resp 18; Temp 98.3(T); Pulse Ox 99% on R/A; Weight 122.47 kg 1 (R); Height 6 ft. 4 in. (193.04 cm); Pain 0/10; 19:34 BP 165 / 107; Pulse 65; Resp 18 S; Pulse Ox 100% on R/A; as6 20:48 BP 149 / 87; Pulse 71; Resp 16 S; Pulse Ox 98% on R/A; as6 17:16 Body Mass Index 32.87 (122.47 kg, 193.04 cm) [facility] ED Course: 17:09 Patient arrived in ED. am2 17:10 Kyle Crawford MD is Private Physician. am2 17:15 Chapo Montiel MD is Attending Physician. rn 17:19 Triage completed. [facility] 17:21 Kyle Crawford MD is Hospitalizing Provider. rn 17:21 Arm band placed on left wrist. [facility] 17:26 Anand Hirsch, JAKY is Primary Nurse. bp 17:26 Patient has correct armband on for positive identification. Bed in low position. Call bp light in reach. Side rails up X2. Adult w/ patient. 19:27 CK Sent. kl 20:49 Inserted saline lock: 20 gauge in right forearm, using aseptic technique. done by day as6 shift staff. 21:21 No provider procedures requiring assistance completed. as6 21:26 Patient admitted, IV remains in place. as6 Administered Medications: 19:40 Drug: NS 0.9% 1000 ml Route: IV; Rate: 100 ml/hr; Site: right antecubital; aa9 21:27 Follow up: IV Status: Infusion continued upon admission as6 20:05 Drug: NS 0.9% 1000 ml Route: IV; Rate: 150 ml/hr; Site: right antecubital; aa9 21:28 Follow up: IV Status: Infusion continued upon admission as6 20:09 Drug: [place] (HYDROcodone-acetaminophen) 10 mg-325 mg 1 tabs Route: PO; aa9 21:26 Follow up: Response: No adverse reaction; Pain is decreased as6 Medication: 17:26 VIS not applicable for this client. bp Outcome: 17:21 Decision to Hospitalize by Provider. rn 21:21 Admitted to Tele accompanied by nurse, family with patient, via wheelchair, Other room as6 221 Report called to receiving nurse 21:21 Condition: stable 21:28 Patient left the ED. as6 Signatures: Keke Johnston, RN RN Chapo Patel MD MD rn Moreno, Amanda am2 Anand Hirsch RN RN bp Raoul Rodriguez RN RN as6 Nickie Lucas RN RN aa9 Kaleigh Ribera RN RN 1 Corrections: (The following items were deleted from the chart) 17:21 17:19 Home Meds: amlodipine oral; [place] [id number]
[2021-10-22 18:21] LABS: Absolute Lymphocytes (CBC) 1.4 K/uL (0.7-4.9); Hematocrit 42.5 % (39.6-49.0); Lymphocytes % 22.2 % (15.3-44.8); MCV 83.5 fL (80-100); MPV 9.6 fL (7.6-11.3)
[2021-10-22] MEDS ORDERED: NA CHLORIDE 0.9% 1,000 ML ONE ×2 (18:23→19:33)
[2021-10-22 18:27] LABS: Uric Acid 5.8 mg/dL (3.5-7.2)
--- NOTE | 2021-10-22 18:40 | RAD REPORT ---
EXAM DESCRIPTION: Danny Single View10/22/2021 6:23 pm CLINICAL HISTORY: Acute renal failure/hypertension COMPARISON: 2020 FINDINGS: The lungs appear clear of acute infiltrate. The heart is normal size IMPRESSION: No acute abnormalities displayed
[2021-10-22 18:42] LABS: Albumin 3.4 g/dL (3.4-5.0); Bilirubin Direct 0.3 mg/dL (0-0.2); Bilirubin Total 0.6 mg/dL (0.2-1.0); Potassium 3.7 mmol/L (3.5-5.1); Protein, Total 7.2 g/dL (6.4-8.2); Troponin High Sensitivity 4.7 pg/mL (<58.9)
[2021-10-22 19:28] LABS: Urine Blood 1+ (Negative); Urine Glucose Negative (Negative); Urine Protein 2+ (Negative); Urine Specific Gravity 1.015 (1.005-1.030); Urine pH 6.5 (5.0-7.0)
[2021-10-22 20:02] LABS: Urine Bacteria <20 /HPF (NONE SEEN); Urine RBC <5 /HPF (NONE SEEN)
[2021-10-22] MEDS ORDERED: HYDROCODONE/APAP 10/325 TAB ONE (20:15)
--- NOTE | 2021-10-22 21:11 | HP ---
Date of Admission: 10/22/2021 Chief Complaint: Feeling weak and tired. History Of Present Illness: This is a 56-year-old very pleasant male patient who has been seeing me for a long time, came into office on 10/12/2021 for followup visit and at that time he informed me th at he has ongoing chronic lower back pain for which he is scheduled to have surgery done on October 28, 2021 in [place] and needed medical clearance. He has received cardiac clearance from Dr. Vernon . The patient also reported new problem with leg edema lately for which he was not taking any medica tions. His blood pressure on that particular day at office was 146/90, pulse 70, and he was noted to have 2+ bilateral pitting leg edema involving lower half of both legs. He was taking amlodipine 10 mg daily, which was thought to be causing this leg swelling problem, so we decided to lower the dose of amlodipine and instructed him to take half a tablet daily, that means to take 5 mg daily, and adde d new medication olmesartan/hydrochlorothiazide 20/12.5, and the patient to take 1 tablet by mouth da randi and he was advised to come see me in 2 weeks. The patient was also instructed to have preop bloo d testing to be done prior to seeing me which he actually had done yesterday. The patient reports th at ever since he started taking this olmesartan/ hydrochlorothiazide, ever since he started taking th e first dose, he started to have feeling of lightheadedness, dizziness, and nauseated feeling, so he contacted my office on October 19, 2021. Since his symptoms were not improving, he was instructed to sto p taking this medication. Next day, which is on October 20, 2021, while he was at work, his boss noted t hat he was feeling very weak and his eyes were, kind of, rolled up and he was feeling extremely weak, so he went to Dr. Vernon's office where his works and got his blood pressure checked, which he believes, was around 70/50, so he received 2 L of IV fluid at Dr. Vernon's office and his systolic blood pressure came up to around 100 or so and he went home. Yesterday, Dr. Vernon informed me abou t this and he also had instructed the patient not to take amlodipine and obviously his olmesartan/hyd rochlorothiazide was discontinued during middle of the week when he had contacted my office. Today i s the first day that the patient feels like that he has started to feel better. His weakness, tiredn ess, dizziness, nausea all those symptoms got better today and he started to have appetite and actual ly ate lot better today than what he did in last 1 week. On an average, he drinks about 3 bottles of water a day, each bottle is about 12 ounce or so. Denies any vomiting, diarrhea. He has not taken any nonsteroidal anti-inflammatory medications. He had his outpatient blood work done yesterday and I reviewed his results today. His creatinine came back at 5.1, which is alarmingly high. He had a n ormal creatinine on September 17 and at that time creatinine was 0.9. His potassium was normal, BUN was around 31. I contacted him with this information and with his acute kidney failure, the patient was instructed to go to the emergency room for further evaluation and management and he came to the ER wh ere he was evaluated by ER physician and soon after his arrival to ER, I also came to the emergency r oom to evaluate him. Denies any fever, chills. No dysuria. No hematuria. Allergies: NO KNOWN ALLERGIES. Medications: Aspirin 81 mg daily, Dexilant 60 mg daily, Multaq 400 mg 2 times a day, ezetimibe 10 mg daily, famotidine 40 mg daily at bedtime, rosuvastatin 40 mg daily, gemfibrozil 600 mg 2 times a day , and the patient was taking amlodipine 10 mg 1 tablet daily for a long time and as of 10/12/2021, he was instructed to take half a tablet daily and as of 10/20/2021, he has not taken amlodipine at all. The patient was recently prescribed olmesartan/hydrochlorothiazide 20/12.5 mg. He was prescribed o n 10/12/2021 and he has not taken it as of 10/19/2021. Review of Systems: Constitutional: As mentioned above. GI: As mentioned above. All other systems reviewed and negative. Musculoskeletal: Lower back pain. Past Medical History: Patient had COVID-19 infection in January 2020. Past medical history is signi ficant for hypertension, mixed hyperlipidemia, coronary artery disease, paroxysmal atrial fibrillatio n, gastroesophageal reflux disease, known alcoholic fatty liver disease. The patient had a cardiac cath done, January 14, 2018, and at that time he was noted to have patent st ent in the ramus and diffuse plaquing of distal RCA and LAD noted. His abdominal ultrasound from Nov, had shown left 2.3 cm renal cyst, which was benign and fatty liver disease. Past Surgical History: Coronary artery stent placement, cholecystectomy, and hemorrhoid surgery. Al so, cervical spine surgery and lumbar spine surgery. In the past, had arthroscopic knee surgery. Family History: Father has a history of heart disease. Social History: Prior history of smoking not at present time, use of alcohol 1 or 2 drinks a day. Physical Examination: Vital Signs: Height 74 inches, weight 274 pounds, temperature , pulse , respirat ory rate , blood pressure , oxygen saturation . General: Awake, alert, oriented, not in distress. HEENT: Head atraumatic, normocephalic. Conjunctivae nonerythematous. Sclerae white. Mouth, no thr ush or edema noted. Ears/Nose, no mass, lesion, discharge noted. Neck: Supple. No JVD, lymph nodes, bruit, thyromegaly noted. Lungs: Bilateral good equal air entry. Clear to auscultation. No rhonchi. No rales. Heart: Normal heart sounds, no murmur or gallop. Abdomen: Soft, bowel sounds normal. No guarding, rigidity, tenderness, mass, hepatosplenomegaly, dis tention, or bruit noted. Extremities: No leg edema. No calf tenderness. Skin: No rash, ulcer, cellulitis. Lymphatics: No lymph node enlargement in neck, supraclavicular, infraclavicular region. Neuro: No focal neurological deficit. Chest: Unremarkable. External Genitalia: Deferred. Rectal: Deferred. Laboratory Data: White count , hemoglobin , platelets , sodium ___, potassium , chloride , bicarb , BUN , creatinine ___, glucose , liver function tests , CPK , urinalysis , uric acid . Impression: 1.Acute kidney failure. 2.Hypertension. 3.Hyperlipidemia, mixed. 4.Coronary artery disease. 5.Gastroesophageal reflux disease. 6.Known alcoholic fatty liver disease. 7.Paroxysmal atrial fibrillation. 8.Gastroesophageal reflux disease. Plan: The patient will be admitted to the hospital for further evaluation and management of this pro blem. The patient is appropriate for inpatient and is expected to spend 2 midnights in hospital. We will start him on IV fluid normal saline at 150 mL/hour for 1 L, then cut it down to 100 cc/hour. D VT prophylaxis will be given using Lovenox. We will monitor blood pressure if necessary, consider an tihypertensive medication like amlodipine, metoprolol, etc. The patient was on benazepril in the pas t without any side effect. At this point, multiple different possible explanation for acute kidney f ailure, possible but most important and likely possibility is low blood pressure causing this acute k idney damage. We will get renal ultrasound, renal artery Doppler, and we will also consult nephrolog ist. I have called and discussed details with Dr. Grubbs and I have discussed details with him and requested him to evaluate the patient and assist us with this management of acute kidney failure. W e will monitor daily electrolytes and renal function. Monitor intake output. I will see him tomorro w morning for followup. Details and plan of treatment discussed with the patient. The patient was a dvised not to take any kind of nonsteroidal anti-inflammatory medications and also the patient should not take any proton-pump inhibitor. DARVIN/MODL Voice ID: [id number]
[2021-10-22] MEDS: NA CHLORIDE 0.9% 1,000 ML IV SCH (21:38)
[2021-10-22] MEDS ORDERED: ONDANSETRON 4 MG/2 ML VIAL IV PRN (21:38)
--- NOTE | 2021-10-22 22:02 | RAD REPORT ---
EXAM DESCRIPTION: US - Abdomen Pelvis Scan US - 10/22/2021 8:56 pm CLINICAL HISTORY: Abdominal pain/elevated creatinine COMPARISON: 2019 FINDINGS: Right kidney measures 14 centimeters with a mildly increased echotexture Left kidney measures 14 centimeters with mildly increased echotexture. 1.6 centimeters cyst. No gross abnormality of the bladder No hydronephrosis Right renal artery velocity 91 centimeters cm/sec Left renal artery velocity 62 cm/sec Renal artery/aorta ratio is within normal limits IMPRESSION: No sonographic evidence of renal arterial stenosis Increased renal echotexture consistent with parenchymal disease
[2021-10-22] MEDS ORDERED: AMLODIPINE 5 MG TAB PO ONE (23:00)
[2021-10-23] MEDS: HYDROCODONE/APAP 10/325 TAB PO PRN ×3 (02:16→19:43)
--- NOTE | 2021-10-23 04:04 | CON ---
Date of Consultation: 10/22/2021 Reason For Consultation: Elevated BUN and creatinine, fluid management. History Of Present Illness: This is a pleasant 56-year-old gentleman with significant past medical history of COVID pneumonia back in January 2020, hypertension, hyperlipidemia, CAD status post PTCA back in 2004, last cardiac cath back in 2018, paroxysmal atrial fibrillation, GERD, alcoholic fatty liver disease, renal cyst. The patient was in his regular state of health. The patient was schedule to have low back surgery on the middle of the month and for that reason, he did seek medical clearance by his PCP, Dr. Gregg. On that visit, the patient found to have marginal elevation in the blood pressure 146/90 and swelling on the leg. The patient at that time was only on amlodipine 10 mg. For that reason, amlodipine was decreased to 5 mg and the patient was started on olmesartan/hydrochlorothiazide 20/12.5 mg. The patient started the medication and according to him after 1 day the patient's swelling subsided significantly and the patient gradually started having some nausea without any vomiting and started feeling dizzy. His symptoms gradually got worse. For that reason, he reported to Dr. Vernon, his multi site leasing consultant. Upon the visit to Dr. Vernon, which is almost after 7 days of taking the medication, found to be hypotensive. For that reason, the patient was resuscitated with fluid in the office. The patient at that time found to be to have improvement in the blood pressure. His blood pressure improved from 70 systolic to 101, standing systolic. The patient left home much better, then reported to his primary care for the followup and to take his clearance for the surgery. By that time with advice of from the PCP and the Cardiology, all blood pressure medication was stopped including the amlodipine and olmesartan with hydrochlorothiazide, when after 24 hour from that incident when he was seen by Dr. Gregg in the office, the patient's symptoms were significantly better close to be asymptomatic and he was drinking very well, no loss of appetite. Lab was done in the office and found to have elevation in creatinine 5.1, as by the record the patient's creatinine back in September 0.9. For that reason, the patient was directed to report to the hospital. The patient denied taking any nonsteroidal. He controlled his back pain with only Tylenol. The patient denied any recent travel. No contact. The patient denied taking any herbal medication. The patient denied exposing to any IV contrast or recent hospitalization. The patient denied any other changes in his medication except as above. The patient stopped the medication from and currently the lab done today in our hospital showing creatinine worsening 6.2 with GFR of 20. Urine did not show any activity except proteinuria, no hematuria but also not concentrated with specific gravity of 1.015. The patient underwent renal ultrasound with vascular Doppler, did not show any renal artery stenosis picture and apparently reviewing the record for the patient, the patient used to be on MINH inhibitor before without any side effect. The patient denied any joint swelling. Denied any photosensitivity. Denied any mouth ulcer. Allergies: NO KNOWN DRUGS ALLERGIES. Past Medical History: 1. COVID pneumonia back in 2019. 2. Hypertension. 3. Hyperlipidemia. 4. CAD with paroxysmal atrial fibrillation, status post cardiac cath back in 2017, and stenting back in 2004. 5. Renal cyst back in November 2020, 2.3 cm. Past Surgical History: 1. PTCA in 2004. 2. Cholecystectomy. 3. Hemorrhoid surgery. 4. Plan for cervical spine surgery. 5. Arthroscopy for the knee. Family History: Positive for CAD. Social History: Ex-smoker. Occasional alcohol. No drug abuse. Allergies: NO KNOWN DRUG ALLERGY. Home Medications: Aspirin, Multaq, Zetia, rosuvastatin, gemfibrozil, amlodipine which was decreased to 5 mg and stopped last . Olmesartan/hydrochlorothiazide that was started on October 12 and stopped on . Review of Systems: Head and Neck: No red eye. No ear pain. No mouth ulcer. No blurred vision. GI: Has nausea. No vomiting. : No polyuria. No dysuria. No hematuria. No foamy urine. No nocturia. 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 Respiratory: No shortness of breath. Cardiovascular: No chest pain. Has leg swelling, that was resolved. Musculoskeletal: Has low back pain. Neuro: No focality. No neuropathy. Endocrine: No polydipsia. Skin: No rash. No photosensitivity. Physical Examination: General: When I saw the patient; the patient lying in bed, completely comfortable, not on any distress. Vital Signs: Blood pressure 162/79, pulse of 67, afebrile. Chest: Clear to auscultation. Heart: S1 and S2. Systolic murmur. Abdomen: Soft, nontender. Could not appreciate any organomegaly. Could not appreciate any bruit over the renal artery. Extremity: No edema. Neurological: Alert and oriented x3. Nonfocal. No tremor. Vascular: Could not appreciate any carotid bruit. No renal bruit. Laboratory Data: Dated October 22, WBC 6.4, H 11 platelets 207, eosinophil of 100. Sodium 139, potassium 3.7, bicarb 23, BUN 38, creatinine 6.2, glucose 103, calcium 9, phosphorous 5. BNP 753. Albumin 3.4. Urinalysis; specific gravity of 1.005, protein of 108. Potassium 25. Sodium 69, +2 protein on the dipstick. Current Medications: The patient on heparin, amlodipine 5 mg, normal saline at 100. Assessment And Plan: 1. Acute kidney injury. Our differential diagnosis, poor perfusion, acute tubular necrosis secondary to prerenal, superimposed with ARB and hydrochlorothiazide supported with the finding of plain urine and history of the present illness. Against this diagnosis, the slow recovery. Depending on the improvement, if kidney function did not improve in the next 48 hours, the patient may need to proceed with kidney biopsy. I had long discussion with the patient regarding that. The patient verbalized understanding. He agreed on that. For that reason, we will keep holding any aspirin for the time being in case we needing the biopsy. We will continue on anticoagulation with heparin subcu and we will follow up. 2. Acute interstitial nephritis secondary to above medication. 3. To rule out renal artery stenosis even though the ultrasound with the vascular structure did not show it, but the gold standard is going to be MRA. Anyhow with the current degree of kidney function, MRA not feasible given the current kidney function and the presentation of the patient and with current kidney function, we are not going to expose the patient for any iodine for any angiogram. We will follow up depending on the improvement on the IV fluid. 4. Autoimmune disease with low probability supported with the finding on the chest x-ray, some interstitial infiltration to rule out any pulmonary renal but the patient does not have any hematuria currently. a. I going to go ahead and send for PTH to evaluate the chronicity of the disease. b. I going to send for full serology. c. We will send for urine eosinophil. d. I agree with holding any insulting medications including gemfibrozil, ARB, and hydrochlorothiazide and we will avoid any PPI or nonsteroidal. We will send for the workup as above and we will follow up the patient. The patient will need a 48 hour to 72 hour before complete washout of his ARB and hydrochlorothiazide from his system given half-life at time of the medication. 5. Hypertension, controlled, not optimal currently with the presence of acute kidney injury. I agree with avoiding any diuretic or MINH inhibitor or ARB. I going to start the patient with low dose of beta ronak. Continue calcium channel ronak and we will follow up. 6. Hypokalemia. The patient is asymptomatic. I will consider to avoid any supplement for the time being. We will send for TSH and magnesium and we will follow up. 7. Coronary artery disease, stable as by primary and Cardiology. 8. Low back pain. Plan for surgery. It is elective surgery. We will postpone until we decide about his clearance. Thank you, Dr. Gregg for allowing us to participate in the care of your patient Time spent examining the patient, [id number], reviewing the data including radiology and lab, placing order, discussing the case with staff including nursing and Dr. Gregg, primary care, more than 65 minutes. MICHAEL Voice ID: [id number] Report ID: [id number] TONY
[2021-10-23 04:10] LABS: Potassium 3.9 mmol/L (3.5-5.1)
[2021-10-23 04:13] LABS: Magnesium 1.9 mg/dL (1.8-2.4); Thyroid Stimulating Hormone 1.05 uIU/mL (0.360-3.740)
[2021-10-23] MEDS: MORPHINE 2 MG/ML SYR IV PRN ×3 (08:25→21:00)
[2021-10-23] MEDS: HEPARIN 5000 UNIT/ML 1 ML VIAL SQ SCH ×2 (08:26→20:59)
[2021-10-23] MEDS: NA CHLORIDE 0.9% 1,000 ML IV SCH ×4 (08:27→22:00)
--- NOTE | 2021-10-23 11:48 | PN ---
Date of Progress Note: 10/23/2021 Subjective: The patient was seen this morning for followup. He was lying in bed. Earlier, he was c omplaining of lower back pain and he takes hydrocodone at home, which we are continuing to give it to him, but that did not help with his back pain, so he was requesting extra medication and morphine wa s ordered. After 1 dose of 2 mg morphine, he felt lot better. He denies any abdominal pain, nausea, vomiting. No shortness of breath. He is tolerating IV fluid very well and has very good amount of urine output. Objective: Vital Signs: Reviewed. Last night because of his high blood pressure, he received 1 dos e of amlodipine 5 mg and his blood pressure has improved with that 1 dose of amlodipine overnight. HEENT: Unremarkable. Lungs: Clear to auscultation. Heart: Sounds normal. Abdomen: Soft. Bowel sounds normal. No guarding, rigidity, tenderness, distention. Extremity: No leg edema. Laboratory Data: Last night; sodium 139, potassium 3.9, chloride 106, bicarb 24, BUN 35, creatinine 5.84. Glucose 90. Renal ultrasound was unremarkable except a 16 mm benign cyst in the left kidney, which is smaller in size compared to ultrasound from last year. Renal artery Doppler was negative. Impression: 1.Acute renal failure. 2.Hypertension. 3.Coronary artery disease. 4.Paroxysmal atrial fibrillation. Plan: We will go ahead and continue IV fluid. He is tolerating IV fluid very well, currently at 100 cc/hour and I have increased IV fluid to 125 cc/hour. We will repeat chemistry this afternoon aroun d lunchtime. Continue heparin for DVT prophylaxis. At home, he takes Multaq 400 mg b.i.d. and we wi ll continue that. Details were discussed today with Dr. Grubbs, squirrel man who has evaluated him and we appreciate his consultation and assistance in this patient's care. Test results were discuss ed with the patient and his who was at bedside and ambulation was encouraged. As long as the yadira galarza's renal function continues to improve, there will not be any need for kidney biopsy, but if it does not, then he may need a kidney biopsy and all these details were discussed with him as well. DARVIN/MODL Voice ID: [id number] Report ID: [id number]
[2021-10-23 12:40] LABS: Potassium 4.1 mmol/L (3.5-5.1)
--- NOTE | 2021-10-23 14:07 | P.PN ---
Subjective Date of Service: 10/23/21 Chief Complaint: Abnormal labs, ARTHUR Subjective: No new changes Physical Examination - Vital Signs Temperature: 97.6 F Blood Pressure: 136/81 Pulse: 62 Respirations: 16 Pulse Ox (%): 98 - Physical Exam General: Alert, In no apparent distress HEENT: Atraumatic, Normocephalic Neck: Supple, JVD not distended Respiratory: Clear to auscultation bilaterally Cardiovascular: No rubs, No murmurs Gastrointestinal: Soft and benign, Non-distended Musculoskeletal: No clubbing Integumentary: No warmth Neurological: Normal speech, Normal tone Urinary: Other (No bladder distention) External genitalia: Deferred Rectal: Deferred Assessment And Plan - Plan # ARTHUR 2/2 ischemic ATN from hypotension, aggravated by ARB/HCTZ + narcotic use, + prolonged prerenal state, r/o low grade urinary obstrxn SCr 6.2 on adm, improved to 5.3 today Denies NSAID use Urinalysis w/ proteinuria but no hematuria or pyuria Urine chem non-prerenal +Mild proteinuria, 1.1g on random upcr PTH wnl, no e/o advanced CKD Doppler US showed no VICTOR MANUEL, no hydronephrosis, no advanced CKD changes [place] po fluid intake > 2L/d BNP elevated If renal fxn continues to improve by tomorrow, d/c IV fluid tomorrow as BNP is elevated Keep MAP > 65 Avoid NSAID, ACEI, ARB, diuretics Monitor I/O, renal panel # Htn Keep SBPs 130-160s for now to help w/ ARTHUR recovery He agreed to monitor BP & HR closely at home to track/prevent hypotensive episodes that's aggravated by narcotic use # CAD, pAfib Cont cardioprudent meds # Chronic back & neck pain Had football injuries remotely Hx of back & neck surgery Has been on narcotics Pending lumbar spinal fusion, initially sked for 10/28/2021 in [place]
[2021-10-23] MEDS ORDERED: AMLODIPINE 5 MG TAB PO ONE (17:04)
[2021-10-23 19:56] LABS: Urine Protein/Creatinine Ratio 1.14 ratio (<0.15)
[2021-10-23] MEDS ORDERED: FAMOTIDINE 20 MG TAB PO ONE (21:00)
[2021-10-23] MEDS ORDERED: carvediloL 6.25 MG TAB PO SCH ×2 (21:00)
[2021-10-23] MEDS: MULTAQ 400 MG PO SCH (21:01)
[2021-10-24 00:07] VITALS: BMI 31.8
[2021-10-24] MEDS: MORPHINE 2 MG/ML SYR IV PRN ×5 (01:05→21:31)
[2021-10-24] MEDS: HYDROCODONE/APAP 10/325 TAB PO PRN ×4 (02:30→20:32)
[2021-10-24] MEDS: NA CHLORIDE 0.9% 1,000 ML IV SCH ×3 (03:18→19:58)
[2021-10-24 05:46] LABS: Absolute Lymphocytes (CBC) 1.4 K/uL (0.7-4.9); Hematocrit 37.2 % (39.6-49.0); Lymphocytes % 25.8 % (15.3-44.8); MPV 9.1 fL (7.6-11.3); RBC Red Blood Cell Count 4.49 M/uL (4.33-5.43)
[2021-10-24 06:05] LABS: Albumin 2.8 g/dL (3.4-5.0); Phosphorus 4.4 mg/dL (2.5-4.9); Potassium 3.9 mmol/L (3.5-5.1)
[2021-10-24] MEDS: FAMOTIDINE 20 MG TAB PO SCH (08:54)
[2021-10-24] MEDS: MULTAQ 400 MG PO SCH ×2 (08:54→20:33)
[2021-10-24] MEDS: HEPARIN 5000 UNIT/ML 1 ML VIAL SQ SCH ×2 (08:55→20:34)
[2021-10-24] MEDS ORDERED: MAGNESIUM HYDROXIDE 8% 30 ML PO ONE (10:26)
--- NOTE | 2021-10-24 13:50 | EKG ---
Test Date: 2021-10-22 Test Time: 18:41:59 Molder Operator: EM MEASUREMENT RESULTS: Intervals: Rate: 68 NM: 178 QRSD: 110 QT: 414 QTc: 440 [place]: P: 35 NM: 178 QRS: -9 T: 44 INTERPRETIVE STATEMENTS: Sinus rhythm with frequent premature ventricular complexes Otherwise normal ECG Compared to ECG 10/21/2019 06:03:36 Left bundle-branch block no longer present Electronically Signed On 10-24-21 13:46:59 CDT by Alexandre Dai
--- NOTE | 2021-10-24 23:12 | PN ---
Date of Progress Note: 10/24/2021 Chief Complaint: Abnormal lab work, acute kidney injury. Review of Systems: Patient denies new complaints. Physical Examination: Lungs: Clear to auscultation bilaterally. Heart: S1, S2. Abdomen: Soft. Extremities: No edema. Impression And Plan: 1. Acute kidney injury secondary to ischemic acute tubular necrosis and hypotension, aggravated by blood pressure medication and an angiotensin receptor ronak with HCTZ and narcotics use resulted in prolonged prerenal state. Patient was scheduled to have workup to rule out urinary obstruction. Serum creatinine level slightly improving. Patient has nonoliguric urine output. Patient has underlying proteinuria, but there is no hematuria or pyuria. Mild proteinuria up to 1.1 g on random specimen with urine protein to creatinine ratio. 2. Patient will need workup for proteinuria. Patient developed acute kidney injury secondary to acute tubular necrosis, likely he has underlying chronic kidney disease. PTH is within normal limits. Doppler ultrasound showed no renal artery stenosis. No hydronephrosis. Patient will continue p.o. fluid intake and plan is to monitor fluid balance. Avoid nephrotoxic medication and avoid angiotensin receptor ronak, MINH inhibitor, and diuretic. KEVYN/MARY Voice ID: [id number] Report ID: [id number] TONY
[2021-10-25] MEDS: MORPHINE 2 MG/ML SYR IV PRN ×5 (01:29→22:40)
[2021-10-25] MEDS: HYDROCODONE/APAP 10/325 TAB PO PRN ×4 (02:31→21:29)
[2021-10-25 04:03] LABS: Albumin 2.8 g/dL (3.4-5.0); Magnesium 1.7 mg/dL (1.8-2.4); Phosphorus 3.8 mg/dL (2.5-4.9); Potassium 4.5 mmol/L (3.5-5.1)
[2021-10-25] MEDS ORDERED: MAGNESIUM SULFATE 1 gm IVPB 1 GM/100 ML BAG IV ONE (05:11)
[2021-10-25] MEDS: NA CHLORIDE 0.9% 1,000 ML IV SCH ×2 (05:24→20:56)
--- NOTE | 2021-10-25 07:37 | PN ---
Date of Progress Note: 10/24/2021 Subjective: Patient was seen this morning for followup. He was feeling fine. No shortness of breat h. No cough, no congestion. No chest pain. Objective: Vital Signs: Reviewed. HEENT: Unremarkable. Lungs: Clear to auscultation. Heart: Sounds normal. Abdomen: Soft. Bowel sounds normal. No guarding, rigidity, tenderness, disten tion. Extremities: No leg edema. Laboratory Data: Sodium 141, potassium 3.9, chloride 112, bicarb 22, BUN 30, creatinine 3.98, and gl ucose 83. Impression: 1.Acute kidney injury. 2.Hypertension. 3.Back pain. 4.Coronary artery disease. 5.Hyperlipidemia. Plan: We will go ahead and continue current medication including amlodipine, we are using for blood p ressure control. Continue IV fluid normal saline at 100 cc/hour. Patient's renal function seems to be improving on a day-to-day basis. We will repeat another blood work tomorrow morning. Ambulation was encouraged. Continue current heparin for DVT prophylaxis. DARVIN/MODL Voice ID: [id number] Report ID: [id number]
[2021-10-25] MEDS: AMLODIPINE 5 MG TAB PO SCH ×2 (09:14→20:57)
[2021-10-25] MEDS: FAMOTIDINE 20 MG TAB PO SCH (09:14)
[2021-10-25] MEDS: HEPARIN 5000 UNIT/ML 1 ML VIAL SQ SCH ×2 (09:15→20:59)
[2021-10-25] MEDS: MULTAQ 400 MG PO SCH ×2 (09:19→21:30)
--- NOTE | 2021-10-25 16:52 | PN ---
Date of Progress Note: 10/25/2021 Subjective: The patient was admitted with acute kidney injury, possible secondary to ARB, superimposed with hydrochlorothiazide, prerenal. The patient worked for renal artery stenosis with the ultrasound and was negative. The patient was started on aggressive hydration. Kidney function gradually started improving. Blood pressure slightly on the upper side. Physical Examination: Vital Signs: Blood pressure 160/87, pulse of 76, afebrile. Chest: Clear to auscultation. Heart: S1, S2. Regular. Abdomen: Soft, nontender. Extremities: No edema. Neurological: Alert, oriented x3. No focal. Laboratory Data: WBC 5.6, H and H 12.3/37.2. Sodium 140, potassium 4.5, bicarb 22, BUN 23, creatinine 2.9, GFR 24, calcium 8.7, phosphorus 3.8, magnesium 1.7, albumin 2.8. Serum protein electrophoresis still pending. PTH of 50, PC ratio 1.1. Serology still pending. Current Medications: The patient on include; 1. Heparin. 2. Amlodipine 5 b.i.d. 3. IV fluid. 4. Magnesium oxide. 5. Magnesium sulfate. Assessment And Plan: 1. Acute kidney injury, mostly secondary to prerenal, superimposed with ARB and hydrochlorothiazide, on the recovery phase. Given the fact of exposed to only single dose of ARB and hydrochlorothiazide, the patient is going to need as outpatient workup for renal artery stenosis. We will follow up. Discussed with Dr. Gregg. 2. Hypertension, controlled, not optimal. The patient could not tolerate carvedilol because of the bradycardia, started on amlodipine. We will follow up. 3. Coronary artery disease, status post percutaneous transluminal coronary angioplasty. Follow up with Cardiology. Time spent examining the patient [id number], reviewing the data, placing order, discussing with by bedside, discussing with staff member including charge nurse and nursing and hospitalist 45 minutes. MICHAEL Voice ID: [id number] Report ID: [id number] TONY
--- NOTE | 2021-10-26 01:36 | PN ---
Date of Progress Note: 10/25/2021 Subjective: The patient was seen this morning. He was sleeping, easily arousable, not in any distress. Back pain is under good control with morphine and hydrocodone. He is ambulating well without any problem. Denies any chest pain or shortness of breath. No abdominal pain, nausea, or vomiting. He was given 1 dose of milk of magnesia yesterday and had a bowel movement. Objective: Vital Signs: Reviewed. Intake and output records reviewed. HEENT: Examination unremarkable. Lungs: Clear to auscultation. Heart: Sounds normal. Abdomen: Soft. Bowel sounds normal. No guarding, rigidity, tenderness, or distention. Extremities: No leg edema. Laboratory Data: Sodium 140, potassium 4.5, chloride 113, bicarb 22, BUN 23, creatinine 2.95, glucose 84, magnesium 1.7. Impression: 1. Acute kidney failure, improving. 2. Hypomagnesemia. 3. Hypertension. 4. Coronary artery disease. 5. Hyperlipidemia. Plan: We will go ahead and continue current medications. Continue current IV fluid, which is normal saline at 100 cc/hr, and we will give amlodipine 5 mg 2 times a day, hold if systolic blood pressure less than 130 and continue current DVT prophylaxis. Continue current IV fluid. Repeat blood work tomorrow morning. Possible discharge to go home day after tomorrow. Details were discussed with assistant golf course superintendent, Dr. Grubbs, today and I will see him in the morning for followup. DARVIN/MODL Voice ID: [id number] Report ID: [id number] TONY
[2021-10-26] MEDS: MORPHINE 2 MG/ML SYR IV PRN ×5 (02:42→23:00)
[2021-10-26] MEDS: HYDROCODONE/APAP 10/325 TAB PO PRN ×4 (03:27→22:05)
[2021-10-26 03:58] LABS: Albumin 2.9 g/dL (3.4-5.0); Magnesium 1.7 mg/dL (1.8-2.4); Phosphorus 3.6 mg/dL (2.5-4.9); Potassium 4.1 mmol/L (3.5-5.1)
[2021-10-26] MEDS ORDERED: MAGNESIUM SULFATE 1 gm IVPB 1 GM/100 ML BAG IV ONE (04:21)
[2021-10-26] MEDS: NA CHLORIDE 0.9% 1,000 ML IV SCH ×2 (06:44→17:30)
[2021-10-26] MEDS: FAMOTIDINE 20 MG TAB PO SCH (08:33)
[2021-10-26] MEDS: AMLODIPINE 5 MG TAB PO SCH ×2 (08:33→21:06)
[2021-10-26] MEDS: MULTAQ 400 MG PO SCH ×2 (08:34→21:05)
[2021-10-26] MEDS: HEPARIN 5000 UNIT/ML 1 ML VIAL SQ SCH ×2 (08:34→21:06)
[2021-10-26 10:06] LABS: Hepatitis C Virus RNA (PCR)log <1.18 log IU/mL
[2021-10-26 17:15] LABS: Albumin, (SPE) 3.2 g/dL (3.8-4.8); Alpha-1-Globulins 0.4 g/dL (0.2-0.3); Alpha-2-Globulins 0.8 g/dL (0.5-0.9); Gamma Globulins 0.6 g/dL (0.8-1.7); INTERPRETATION REPORT
--- NOTE | 2021-10-26 17:55 | PN ---
Date of Progress Note: 10/26/2021 Subjective: The patient was admitted with acute kidney injury, unknown etiology, possible renal artery stenosis. After taking single dose of ARB and hydrochlorothiazide, after hydration kidney function has been improved. Renal ultrasound with Doppler did not show any renal artery stenosis. The patient feeling much better. Objective: Vital Signs: Blood pressure 147/80, pulse of 68. The patient had good urine output of 3100. Chest: Clear to auscultation. Heart: S1, S2. Regular. Abdomen: Soft, nontender. EXTREMITIES: No edema. Laboratory Data: WBC 5.6, H and H 12.3/37.2. Sodium 142, potassium 4.1, bicarb 24, BUN 19, creatinine 2.2, GFR 34, calcium 9, phosphorus 3.6, magnesium 1.7, albumin 2.9, corrected calcium is 9.8. Current Medications: The patient on include; 1. Heparin. 2. Amlodipine. 3. Pepcid. 4. Zofran. 5. Normal silent. 6. Hydrocodone. Assessment And Plan: 1. Acute kidney injury, possible prerenal superimposed with ARB and hydrochlorothiazide, on the Recovery. Serology is still pending. We will follow up. The patient may need as outpatient MRA to evaluate the renal artery. 2. Hypertension, controlled, optimal. Continue current medication. Please avoid any ARB or MINH inhibitor. 3. Hypokalemia, resolved. 4. Coronary artery disease. Follow up with Cardiology, stable. Time spent examining the patient [id number], reviewing the data, placing order, discussing with by bedside, discussing with staff member including charge nurse and nursing and hospitalist 45 minutes. MICHAEL Voice ID: [id number] Report ID: [id number] TONY
[2021-10-26 19:32] LABS: HIV AG/AB 4TH GEN Non-reactive (Non-reactive)
[2021-10-27] MEDS: MORPHINE 2 MG/ML SYR IV PRN ×5 (02:57→21:20)
[2021-10-27] MEDS: HYDROCODONE/APAP 10/325 TAB PO PRN ×4 (04:01→22:37)
[2021-10-27] MEDS: NA CHLORIDE 0.9% 1,000 ML IV SCH ×3 (04:02→21:18)
[2021-10-27 06:16] LABS: Absolute Lymphocytes (CBC) 1.3 K/uL (0.7-4.9); Hematocrit 35.5 % (39.6-49.0); Lymphocytes % 27.9 % (15.3-44.8); MCV 81.4 fL (80-100); MPV 9.3 fL (7.6-11.3); RBC Red Blood Cell Count 4.36 M/uL (4.33-5.43)
[2021-10-27 06:23] LABS: Albumin 2.9 g/dL (3.4-5.0); Potassium 3.9 mmol/L (3.5-5.1)
[2021-10-27 06:30] LABS: Magnesium 1.7 mg/dL (1.8-2.4)
[2021-10-27] MEDS ORDERED: MAGNESIUM SULFATE 1 gm IVPB 1 GM/100 ML BAG IV ONE (06:42)
--- NOTE | 2021-10-27 07:02 | PN ---
Date of Progress Note: 10/26/2021 Subjective: The patient was seen this morning for followup. No new complaints or problems reported by the patient. Lying in bed, not in any distress. Denies any chest pain, shortness of breath. Int teofilo/output records reviewed. Objective: Vital Signs: Reviewed. HEENT: Unremarkable. Lungs: Clear to auscultation. Heart: Sounds normal. Abdomen: Soft. Bowel sounds normal. No guarding, rigidity, tenderness, distention. Extremities: No leg edema. Laboratory Data: Sodium 142, potassium 4.1, chloride 112, bicarb 24, BUN 19, creatinine 2.20, glucos e 85. Magnesium 1.7. Impression: 1.Acute kidney failure, improving. 2.Hypertension. 3.Coronary artery disease. Plan: We will go ahead and continue current medication. Continue IV fluid at current rate. Continu e current antihypertensive medication. Continue DVT prophylaxis using heparin. We will repeat blood work tomorrow morning. I have discussed details with the patient that our plan is to continue IV fl uid hydration until one of the two goals are achieved. Ideally, goal is to get his renal function ba ck to normal and then at that point discontinue IV fluid and discharge him to go home or other option is if we stop seeing improvement in renal function, then at that point also we will discontinue IV f luid and discharge him to go home. All these details were discussed with him. So far the patient has shown excellent improvement in his renal function. DARVIN/MODL Voice ID: [id number] Report ID: [id number]
[2021-10-27] MEDS: MULTAQ 400 MG PO SCH ×2 (09:00→21:19)
[2021-10-27] MEDS: AMLODIPINE 5 MG TAB PO SCH ×2 (09:01→21:20)
[2021-10-27] MEDS: FAMOTIDINE 20 MG TAB PO SCH (09:02)
[2021-10-27] MEDS: HEPARIN 5000 UNIT/ML 1 ML VIAL SQ SCH ×2 (09:02→21:21)
--- NOTE | 2021-10-27 19:47 | PN ---
Date of Progress Note: 10/27/2021 Subjective: The patient was admitted with acute kidney injury secondary to prerenal, superimposed with ARB and hydrochlorothiazide. The patient started on hydration. Kidney function has been improved over the night, normal saline decreased to 75. Physical Examination: Vital Signs: Blood pressure 165/88, pulse of 67, afebrile. The patient had good urine output of 3100. Chest: Clear to auscultation. Heart: S1, S2. Regular. Abdomen: Soft, nontender. Extremities: Trace edema. Neurologic: Nonfocal. Laboratory Data: WBC 4.6, H and H 11.9/35.5. Sodium 143, potassium 3.9, bicarb 23, BUN 18, creatinine down to 1.8, GFR of 42, calcium 9, phos 4, magnesium 1.7, albumin 2.9, corrected calcium is 9.8. Current Medications: The patient on include amlodipine 5 mg b.i.d., Pepcid, normal saline at 75. Assessment And Plan: 1. Acute kidney injury secondary to prerenal, superimposed with ARB and hydrochlorothiazide, on the recovery. We will continue to monitor the patient. The patient cleared from the Renal standpoint for discharge planning. Light chain disease has been ruled out. C3, C4 within normal limits. Still pending JULIETTE. We will follow up the rest of the serology. The patient is going to need as outpatient MRA to evaluate the renal artery. 2. Hypertension, controlled, not optimal. Continue current medication. We will follow up after discontinuing IV fluid. 3. Hypomagnesemia. We will supplement. Time spent examining the patient [id number], reviewing the data, placing order, discussing with by bedside, discussing with staff member including charge nurse and nursing and hospitalist 45 minutes. MICHAEL Voice ID: [id number] Report ID: [id number] TONY
[2021-10-28] MEDS: MORPHINE 2 MG/ML SYR IV PRN ×2 (01:25→05:24)
[2021-10-28 03:33] LABS: HBsAG Nonreactive (Nonreactive)
[2021-10-28] MEDS: NA CHLORIDE 0.9% 1,000 ML IV SCH (04:20)
[2021-10-28] MEDS: HYDROCODONE/APAP 10/325 TAB PO PRN (04:20)
[2021-10-28 05:11] VITALS: O2SAT 100
--- NOTE | 2021-10-28 06:38 | PN ---
Date of Progress Note: 10/27/2021 Subjective: The patient was seen this morning for followup. No new complaints or problems reported. Denies any chest pain or shortness of breath. No nausea. No vomiting. Denies any constipation pr oblem. Objective: Vital Signs: Reviewed. HEENT: Examination unremarkable. Lungs: Clear to auscultation. No wheezing. No rales. Heart: Sounds normal. Abdomen: Soft. Bowel sounds normal. No guarding, rigidity, tenderness, or distention. Extremities: No leg edema. Laboratory Data: White count 4.6, hemoglobin 11.9, and platelets . Sodium 143, potassium 3.9, chloride 113, bicarb 23, BUN 18, creatinine 1.84, and glucose 86. Impression: 1.Acute kidney failure, improving. 2.Hypertension. 3.Coronary artery disease. 4.Hyperlipidemia. Plan: We will go ahead and continue current IV fluid normal saline at 100 cc/hour. Monitor renal fu nction on a daily basis. So far, workup for any other causes of acute kidney injury has come back ne opal. Serum protein electrophoresis and immunoelectrophoresis are unremarkable. Renal ultrasound and arterial Doppler was unremarkable except renal cyst. Plan is to repeat blood work tomorrow oskar murguia and possible discharge to go home tomorrow depending on his blood test results. Details were discussed w ith the patient. DARVIN/MODL Voice ID: [id number] Report ID: [id number]
[2021-10-28 07:02] LABS: Albumin 2.8 g/dL (3.4-5.0); Magnesium 1.8 mg/dL (1.8-2.4); Phosphorus 4.2 mg/dL (2.5-4.9)
[2021-10-28 08:31] VITALS: BP 132/82; TEMP 97
--- NOTE | 2021-10-29 13:53 | DS ---
Date of Discharge: 10/28/2021 Disposition: Discharged to go home. Physical Examination: HEENT: Examination unremarkable. Lungs: Clear to auscultation. Heart: Sounds normal. Abdomen: Soft. Bowel sounds normal. No guarding, rigidity, tenderness, distention. Extremities: No leg edema. Laboratory Data: Upon admission, white count 6.4, hemoglobin 13.9, platelets 207 and yesterday white count 4.6, hemoglobin 11.9, platelets 190. Initial Chemistry: Sodium 139, potassium 3.7, chloride 104, bicarb 23, BUN 38, creatinine 6.20, glucose 103, calcium 9. Liver function tests unremarkable. Troponin 4.7. CPK 48. Last chemistry today: Creatinine is 1.54. His hepatitis profile came back negative. COVID-19 test was negative. Serum protein and immunoelectrophoresis were negative. His H IV test was negative. Renal ultrasound was unremarkable except benign-appearing renal cyst. Renal a rtery Doppler was unremarkable. Hospital Course: This is a 56-year-old male patient, who was admitted to the hospital after he came into emergency room with complaints of feeling weak, tired. Please see dictated H and P for more inf ormation. After the patient was evaluated in the emergency room, he was admitted to the hospital wit h this acute kidney failure. His creatinine was normal about a month ago, which was 0.9 and now his creatinine is 6. Nephrology consultation was obtained from Dr. Grubbs for this acute kidney failur e. This acute kidney failure was thought to be due to hypotension that he had prior to admission to the hospital. Since his admission, we started him on IV fluid, initially he was given IV fluid at 15 0 cc/hour and then after 1 L it was reduced to 100 cc/hour and he continued this IV fluid at 100 cc/h our throughout this hospitalization. We monitored his renal function on a daily basis, and we have s een significant and daily improvement in his renal function. He has tolerated IV fluid hydration bryson y well, has not shown any signs or symptoms of fluid overload. His urine output was monitored and ramirez s shown adequate urine output as well with IV fluid hydration. For his blood pressure, we did start him on amlodipine and that actually has helped to control his blood pressure very well. He has lower back pain for which he is actually waiting for surgery and on outpatient basis, he was taking hydroc odone during this hospitalization. His pain was not well controlled with hydrocodone, so we did have to use some morphine and combination of morphine and hydrocodone actually help to keep him comfortab le. Today, he was discharged to go home in stable condition and I will follow up with him next week with a blood work that will get done day before appointment for monitoring of his renal function. Ne xt week on basis of his blood work and overall condition, we will decide if we can release him to go how his back surgery or not. Discharge Medications And Instructions: 1.Continue all prior home medications except stop olmesartan/hydrochlorothiazide and also stop Dexil ant. 2.Take amlodipine 10 mg 1 tablet by mouth daily. 3.Start famotidine 20 mg 1 tablet by mouth 2 times a day. 4.Do not take any Aleve, Motrin, type of medications. 5.Follow up at my office on 11/02/2021 and come to office for blood work on 11/01/2021. Final Diagnoses: 1.Acute renal failure. 2.Renal cyst. 3.Hypertension. 4.Coronary artery disease. 5.Hyperlipidemia. 6.Back pain. DARVIN/MODL Voice ID: [id number] Report ID: [id number]
[2021-11-01 06:35] LABS: Beta Globulin 24 HR Urine 23 %; Gamma Globulin, 24hr Urine 17 %; Interpretation: REPORT; Protein/Crea Ratio in g 928 mg/g creat (<=114); Protein/Crea Ratio in mg 0.928 (<=0.114); Urine Alpha-2-Globulins, 24 Hr 24 %; Urine PEP Abn Protein Band1 REPORT; Urine Total Volume 24 Hours 3500 mL
== END 2021-10-28 08:30 | disposition home or self-care (01) | DRG 684 ==
LOC: ER 17:08 → ERHOLD 17:52 → 2ND 20:37
PROVIDERS: ADMIT Internal Medicine; ATTEND Internal Medicine
DX: N17.0 Acute kidney failure with tubular necrosis (principal); N28.1 Cyst of kidney, acquired; I10 Essential (primary) hypertension; I25.10 Atherosclerotic heart disease of native coronary artery without angina pectoris; E78.5 Hyperlipidemia, unspecified; M54.9 Dorsalgia, unspecified; E83.42 Hypomagnesemia; E87.6 Hypokalemia; I95.9 Hypotension, unspecified; I48.0 Paroxysmal atrial fibrillation; E78.2 Mixed hyperlipidemia; K70.0 Alcoholic fatty liver; K21.9 Gastro-esophageal reflux disease without esophagitis; Z95.5 Presence of coronary angioplasty implant and graft; Z86.16 Personal history of COVID-19; Z20.822 Contact with and (suspected) exposure to COVID-19
CPT/HCPCS: 36415; 71045; 80048; 80053; 80069; 81003; 81015; 82248; 82550; 82570; 83735; 83880; 83930; 83935; 83970; 84100; 84132; 84156; 84165; 84166; 84300; 84443; 84484; 84550; 85025; 86021; 86038; 86160; 86225; 86317; 86334; 86704; 86706; 87040; 87340; 87389; 87522; 88108; 93005; 93975; 96360; 96361; 99285; J1644; J2270; J3475; J7030; U0003